=== PATIENT | male | born 1950 | race Caucasian/White ===

== ENCOUNTER 2017-08-06 15:38 | Emergency (ER) | payer OTHER, MEDICARE ==
[2017-08-06] MEDS ORDERED: ONDANSETRON 4 MG/2 ML VIAL ONE (16:33)
[2017-08-06] MEDS ORDERED: NA CHLORIDE 0.9% 2,000 ML ONE (16:33)
[2017-08-06] MEDS ORDERED: FAMOTIDINE 20 MG/2 ML VIAL IV ONE (16:33)
--- NOTE | 2017-08-06 16:38 | EDPHYS ---
Physician Documentation [facility] Name: Ramos Nair Age: 67 yrs Sex: Male : 1950 Arrival Date: 08/06/2017 Time: 15:44 Bed 25 Private MD: Mars Rodríguez B ED Physician Rodrigo Peñaloza HPI: 08/06 16:25 This 67 yrs old Male presents to ER via Ambulatory with complaints of sam Abdominal Pain, Back Pain. 16:25 The patient presents with pain that is acute, with no known mechanism of injury. The sam symptoms are located in the low back. Onset: The symptoms/episode began/occurred 3 week(s) ago. The pain does not radiate. Associated signs and symptoms: Pertinent positives: abdominal pain, nausea, weakness. The problem was sustained without known cause. Modifying factors: The patient symptoms are alleviated by nothing, the patient symptoms are aggravated by movement, walking. Severity of symptoms: At their worst the symptoms were moderate, in the emergency department the symptoms are unchanged. The patient has not experienced similar symptoms in the past. Historical: - Allergies: 15:50 No Known Allergies; hj - Home Meds: 15:50 Metoprolol Tartrate Oral [Active]; Nifedipine Oral [Active]; Lisinopril Oral [Active]; hj multivitamin oral oral [Active]; Vitamin D3 oral oral [Active]; Caltrate 600+D Plus Minerals oral oral [Active]; - PMHx: 15:50 Hypertension; hj - PSHx: 15:50 neck; hj - Immunization history:: Adult Immunizations up to date. - Social history:: Smoking status: Patient uses tobacco products, Patient/guardian denies using alcohol. - Ebola Screening: : Patient negative for fever greater than or equal to 101.5 degrees Fahrenheit, and additional compatible Ebola Virus Disease symptoms Patient denies exposure to infectious person Patient denies travel to an Ebola-affected area in the 21 days before illness onset. - Family history:: not pertinent. ROS: 16:25 Constitutional: Negative for fever, chills, and weight loss, Eyes: Negative for injury, sam pain, redness, and discharge, ENT: Negative for injury, pain, and discharge, Neck: Negative for injury, pain, and swelling, Cardiovascular: Negative for chest pain, palpitations, and edema, Respiratory: Negative for shortness of breath, cough, wheezing, and pleuritic chest pain, Back: Negative for injury and pain, : Negative for injury, bleeding, discharge, and swelling, MS/Extremity: Negative for injury and deformity, Skin: Negative for injury, rash, and discoloration, Neuro: Negative for headache, weakness, numbness, tingling, and seizure, Psych: Negative for depression, anxiety, suicide ideation, homicidal ideation, and hallucinations, Allergy/Immunology: Negative for hives, rash, and allergies, Endocrine: Negative for neck swelling, polydipsia, polyuria, polyphagia, and marked weight changes, Hematologic/Lymphatic: Negative for swollen nodes, abnormal bleeding, and unusual bruising. 16:25 Abdomen/GI: Positive for abdominal pain, nausea and vomiting, abdominal cramps. Exam: 16:25 Constitutional: This is a well developed, well nourished patient who is awake, alert, sam and in no acute distress. Head/Face: Normocephalic, atraumatic. Eyes: Pupils equal round and reactive to light, extra-ocular motions intact. Lids and lashes normal. Conjunctiva and sclera are non-icteric and not injected. Cornea within normal limits. Periorbital areas with no swelling, redness, or edema. ENT: Nares patent. No nasal discharge, no septal abnormalities noted. Tympanic membranes are normal and external auditory canals are clear. Oropharynx with no redness, swelling, or masses, exudates, or evidence of obstruction, uvula midline. Mucous membranes moist. Neck: Trachea midline, no thyromegaly or masses palpated, and no cervical lymphadenopathy. Supple, full range of motion without nuchal rigidity, or vertebral point tenderness. No Meningismus. Chest/axilla: Normal chest wall appearance and motion. Nontender with no deformity. No lesions are appreciated. Cardiovascular: Regular rate and rhythm with a normal S1 and S2. No gallops, murmurs, or rubs. Normal PMI, no JVD. No pulse deficits. Respiratory: Lungs have equal breath sounds bilaterally, clear to auscultation and percussion. No rales, rhonchi or wheezes noted. No increased work of breathing, no retractions or nasal flaring. Back: No spinal tenderness. No costovertebral tenderness. Full range of motion. Male : Normal genitalia with no discharge or lesions. Skin: Warm, dry with normal turgor. Normal color with no rashes, no lesions, and no evidence of cellulitis. MS/ Extremity: Pulses equal, no cyanosis. Neurovascular intact. Full, normal range of motion. Neuro: Awake and alert, GCS 15, oriented to person, place, time, and situation. Cranial nerves II-XII grossly intact. Motor strength 5/5 in all extremities. Sensory grossly intact. Cerebellar exam normal. Normal gait. Psych: Awake, alert, with orientation to person, place and time. Behavior, mood, and affect are within normal limits. 16:25 Abdomen/GI: Inspection: abdomen appears normal, Bowel sounds: normal, Palpation: mild abdominal tenderness, in all quadrants, moderate abdominal tenderness, in all quadrants. Vital Signs: 15:51 BP 99 / 78; Pulse 90; Resp 18; Temp 98.1(O); Pulse Ox 96% on R/A; Weight 57.15 kg; Height 5 ft. 9 in. (175.26 cm); Pain 6/10; 16:14 BP 110 / 76; Pulse 83; Resp 18; Pulse Ox 97% on R/A; Pain 6/10; tl3 18:19 BP 98 / 66; Pulse 84; Resp 18; Pulse Ox 96% on R/A; aj1 19:25 BP 102 / 75; Pulse 88; Resp 18; Pulse Ox 96% on R/A; Pain 4/10; aj1 15:51 Body Mass Index 18.61 (57.15 kg, 175.26 cm) MDM: 15:55 Patient medically screened. [facility] 16:25 Data reviewed: vital signs, nurses notes, lab test result(s), EKG, radiologic studies, sam plain films. 08/06 16:24 Order name: Basic Metabolic Panel; Complete Time: 17:22 [facility] 08/06 16:24 Order name: BNP; Complete Time: 17:22 [facility] 08/06 16:24 Order name: CBC with Diff; Complete Time: 17:22 [facility] 08/06 16:24 Order name: Ckmb; Complete Time: 17:22 [facility] 08/06 16:24 Order name: CPK; Complete Time: 17:22 [facility] 08/06 16:24 Order name: LFT's; Complete Time: 17:22 [facility] 08/06 16:24 Order name: Magnesium; Complete Time: 17:22 [facility] 08/06 16:24 Order name: PT-INR; Complete Time: 17:22 [facility] 08/06 16:24 Order name: Ptt, Activated; Complete Time: 17:22 [facility] 08/06 16:24 Order name: Troponin (emerg Dept Use Only); Complete Time: 17:22 [facility] 08/06 16:24 Order name: Lipase; Complete Time: 17:22 [facility] 08/06 16:24 Order name: Type And Screen; Complete Time: 18:41 [facility] 08/06 17:23 Order name: Urine Osmolality [facility] 08/06 17:23 Order name: Urine Sodium Random [facility] 08/06 16:24 Order name: EKG; Complete Time: 16:25 [facility] 08/06 16:24 Order name: Cardiac monitoring; Complete Time: 16:47 [facility] 08/06 16:32 Order name: Abdomen Acute Series XRAY; Complete Time: 17:22 [facility] 08/06 16:44 Order name: CONS Physician Consult [facility] 08/06 17:23 Order name: Osmolality, Serum [facility] 08/06 17:41 Order name: ABO/RH no charge; Complete Time: 18:41 [facility] 08/06 17:48 Order name: Chem 7 [facility] 08/06 18:33 Order name: Basic Metabolic Panel; Complete Time: 18:41 [facility] 08/06 18:39 Order name: Osmolality, Serum; Complete Time: 18:41 [facility] 08/06 19:19 Order name: Urine Dipstick--Ancillary (enter results) [facility] 08/06 19:28 Order name: UR SODIUM; Complete Time: 19:28 [facility] 08/06 16:24 Order name: EKG - Nurse/Tech; Complete Time: 16:47 [facility] 08/06 16:24 Order name: IV Saline Lock; Complete Time: 16:27 [facility] 08/06 16:24 Order name: Labs collected and sent; Complete Time: 16:27 [facility] 08/06 16:24 Order name: O2 Per Protocol; Complete Time: 16:48 [facility] 08/06 16:24 Order name: O2 Sat Monitoring; Complete Time: 16:48 [facility] 08/06 16:24 Order name: Urine Dipstick-Ancillary (obtain specimen); Complete Time: 19:20 [facility] 08/06 17:23 Order name: Seizure Precautions; Complete Time: 17:47 [facility] Administered Medications: 16:46 Drug: Pepcid 20 mg Route: IVP; Site: right antecubital; aj1 19:27 Follow up: Response: No adverse reaction aj1 16:46 Drug: Zofran 4 mg Route: IVP; Site: right antecubital; aj1 19:27 Follow up: Response: No adverse reaction aj 16:47 Drug: NS 0.9% 1000 ml Route: IV; Rate: 1 bolus; Site: right antecubital; aj1 19:26 Follow up: IV Status: Completed infusion; IV Intake: 1000ml aj 16:47 Drug: NS 0.9% 1000 ml Route: IV; Rate: 125 ml/hr; Site: right antecubital; aj1 19:27 Follow up: IV Status: Infusion continued upon transfer; IV Intake: 350ml aj Disposition: 08/06/17 17:[address] [facility]. Diagnosis are Abdominal tenderness - cecal mass, metastaic, Vomiting, Hypo-osmolality and hyponatremia, Dehydration, Hypotension. - Reason for transfer: Higher level of care. - Accepting physician is to [facility]. - Condition is Fair. - Problem is new. - Symptoms have improved. Signatures: Dispatcher [employer] EDKY Vidal Francis rg2 Kalee Poon RN RN aj1 Rodrigo Peñaloza MD MD cha Joaquin, Henry RN RN hj Corrections: (The following items were deleted from the chart) 16:34 16:25 Chest Single View+RAD.RAD.BRZ ordered. [facility] ED[facility] 17:23 16:37 Hospitalization Ordered by Jillian Carrera MD for Inpatient Admission. Preliminary sam diagnosis is Abdominal tenderness - cecal mass, metastatic; Anorexia; Vomiting. Bed requested for Telemetry/MedSurg (Inpatient). Status is Inpatient Admission. Condition is Stable. Problem is new. Symptoms have improved. UTI on Admission? No. sam 17:46 17:27 08/06/2017 17:[address] [facility]. Diagnosis is sam Abdominal tenderness - cecal mass, metastaic; Vomiting; Hypo-osmolality and hyponatremia. Reason for transfer: Higher level of care. Accepting physician is to [facility]. Condition is Fair. Problem is new. Symptoms have improved. sam 18:48 17:46 08/06/2017 17:[address] [facility]. Diagnosis is sam Abdominal tenderness - cecal mass, metastaic; Vomiting; Hypo-osmolality and hyponatremia; Dehydration. Reason for transfer: Higher level of care. Accepting physician is to [facility]. Condition is Fair. Problem is new. Symptoms have improved. sam 19:30 18:48 08/06/2017 17:[address] [facility]. Diagnosis is rg2 Abdominal tenderness - cecal mass, metastaic; Vomiting; Hypo-osmolality and hyponatremia; Dehydration; Hypotension. Reason for transfer: Higher level of care. Accepting physician is to [facility]. Condition is Fair. Problem is new. Symptoms have improved. sam
[2017-08-06 16:54] LABS: Absolute Lymphocytes (CBC) 1.8 K/uL (0.7-4.9); Absolute Monocytes 1.3 K/uL (0.1-1.3); Absolute Neutrophil 8.6 K/uL (1.8-8.0); Basophils % 1.2 % (0-1.3); Eosinophils % 1.4 % (0-4.4); Hematocrit 35.6 % (39.6-49.0); Lymphocytes % 15.1 % (15.3-44.8); MCV 90.2 fL (80-100); MPV 7.8 fL (7.6-11.3); Monocytes % 10.4 % (3.3-12.3); RBC Red Blood Cell Count 3.94 M/uL (4.33-5.43)
[2017-08-06 17:04] LABS: Bicarbonate 23 mEq/L (21-31); Glucose Level 105 mg/dL (65-120); Lipase 33 U/L (22-51); Potassium 4.2 mEq/L (3.6-5.0); Sodium Level 122 mEq/L (135-145)
[2017-08-06 17:06] LABS: Protime INR 1.07
--- NOTE | 2017-08-06 17:07 | RAD REPORT ---
EXAM DESCRIPTION: RAD - Abdomen Acute Series - 08/06/2017 4:53 pm CLINICAL HISTORY: Abdominal pain, weight loss COMPARISON: CT study July 20 FINDINGS: Lungs are fibrotic as a baseline. Right suprahilar mass present approximately 3 cm in size . There is fullness of the right hilum that is probably lymphadenopathy. No peripheral pneumonia. Hea rt size and pulmonary vasculature are normal. No pleural effusion, pneumothorax or other acute cardio pulmonary process seen. Bowel gas pattern is nonspecific. No bowel obstruction, free air or other acute findings. No suspicio us calcifications. No other suspicious for significant findings. Findings telephoned to Dr Cartwright in the emergency department 1702 hours. IMPRESSION: Right suprahilar mass and right hilar lymphadenopathy. This could be primary lung malign tila or metastatic disease. Follow-up CT imaging in the chest could be obtained as warranted.
[2017-08-06 17:11] LABS: ALT/SGPT 17 IU/L (10-60); AST/SGOT 52 IU/L (10-42); Albumin 3.5 g/dL (3.2-5.5); Alkaline Phosphatase 87 IU/L (42-121); BUN Blood Urea Nitrogen 10 mg/dL (6-20); Bilirubin Direct 0.1 mg/dL (0-0.2); Bilirubin Total 0.7 mg/dL (0.3-1.2); Creatine Phosphokinase 19 IU/L (22-269); Magnesium 1.8 mg/dL (1.8-2.5); Protein, Total 7.9 g/dL (6.0-8.3)
[2017-08-06 17:13] LABS: CKMB Creatine Kinase MB 1.3 ng/ml (0.3-4.0)
--- NOTE | 2017-08-06 17:28 | ER ---
Nurse's Notes [facility] Name: Ramos Nair Age: 67 yrs Sex: Male : 1950 Arrival Date: 08/06/2017 Time: 15:44 Bed 25 Private MD: Mars Rodríguez B Diagnosis: Abdominal tenderness-cecal mass, metastaic;Vomiting;Hypo-osmolality and hyponatremia;Dehydration;Hypotension Presentation: 08/06 15:45 Presenting complaint: Patient states: hanane been seeing Dr. Royal and been waiting for results of upper GI and CT abd, i couldn't bear the pain on my abd right now, both R and L upper outer part; denies diarrhea, reports vomiting; lost 20 lbs for this month; denies fever and chills;. Transition of care: patient was not received from another setting of care. Onset of symptoms was August 06, 2017. Risk Assessment: Do you want to hurt yourself or someone else? Patient reports no desire to harm self or others. Initial Sepsis Screen: Does the patient meet any 2 criteria? No. Patient's initial sepsis screen is negative. Does the patient have a suspected source of infection? No. Patient's initial sepsis screen is negative. Care prior to arrival: None. 15:45 Method Of Arrival: Ambulatory 15:45 Acuity: GEOVANI 3 Triage Assessment: 15:51 General: Appears in no apparent distress. uncomfortable, slender, Behavior is calm, hj cooperative, appropriate for age. Pain: Complains of pain in abdomen Pain currently is 6 out of 10 on a pain scale. Historical: - Allergies: 15:50 No Known Allergies; hj - Home Meds: 15:50 Metoprolol Tartrate Oral [Active]; Nifedipine Oral [Active]; Lisinopril Oral [Active]; hj multivitamin oral oral [Active]; Vitamin D3 oral oral [Active]; Caltrate 600+D Plus Minerals oral oral [Active]; - PMHx: 15:50 Hypertension; hj - PSHx: 15:50 neck; hj - Immunization history:: Adult Immunizations up to date. - Social history:: Smoking status: Patient uses tobacco products, Patient/guardian denies using alcohol. - Ebola Screening: : Patient negative for fever greater than or equal to 101.5 degrees Fahrenheit, and additional compatible Ebola Virus Disease symptoms Patient denies exposure to infectious person Patient denies travel to an Ebola-affected area in the 21 days before illness onset. - Family history:: not pertinent. Screenin:50 Abuse screen: Denies threats or abuse. Denies injuries from another. Nutritional hj screening: No deficits noted. Tuberculosis screening: No symptoms or risk factors identified. Fall Risk None identified. Assessment: 15:50 GI: Bowel sounds present X 4 quads. Abdomen is tender to palpation. hj 16:14 General: Appears uncomfortable, well groomed, well developed, well nourished, Behavior tl3 is calm, cooperative, appropriate for age. Pain: Complains of pain in abdomen. Neuro: Level of Consciousness is awake, alert, obeys commands, Oriented to person, place, time, situation, Appropriate for age. Cardiovascular: Heart tones S1 S2 present Patient's skin is warm and dry. Respiratory: Airway is patent Respiratory effort is even, unlabored, Respiratory pattern is regular, symmetrical, Breath sounds are clear bilaterally. : No signs and/or symptoms were reported regarding the genitourinary system. EENT: No signs and/or symptoms were reported regarding the EENT system. Derm: No signs and/or symptoms reported regarding the dermatologic system. Musculoskeletal: No signs and/or symptoms reported regarding the musculoskeletal system. 16:45 Reassessment: Patient transported to radiology via wheelchair. aj1 17:15 Reassessment: Patient appears in no apparent distress at this time. No changes from aj1 previously documented assessment. Patient and/or family updated on plan of care and expected duration. Pain level reassessed. Patient is alert, oriented x 3, equal unlabored respirations, skin warm/dry/pink. 18:19 Reassessment: Patient appears in no apparent distress at this time. No changes from aj1 previously documented assessment. Patient and/or family updated on plan of care and expected duration. Pain level reassessed. Patient is alert, oriented x 3, equal unlabored respirations, skin warm/dry/pink. 18:55 Reassessment: Reports given to Hussein Choi RN at [facility]. aj1 19:15 Reassessment: Patient and/or family updated on plan of care and expected duration. Pain aj1 level reassessed. General: Appears in no apparent distress. comfortable, Behavior is calm, cooperative, appropriate for age. Neuro: Level of Consciousness is awake, alert, obeys commands, Oriented to person, place, time, situation. Cardiovascular: Patient's skin is warm and dry. Respiratory: Airway is patent Respiratory effort is even, unlabored, Respiratory pattern is regular, symmetrical. GI: Bowel sounds present X 4 quads. : No signs and/or symptoms were reported regarding the genitourinary system. EENT: No signs and/or symptoms were reported regarding the EENT system. Derm: No signs and/or symptoms reported regarding the dermatologic system. Skin is pink, warm \T\ dry. Musculoskeletal: No signs and/or symptoms reported regarding the musculoskeletal system. Circulation, motion, and sensation intact. Vital Signs: 15:51 BP 99 / 78; Pulse 90; Resp 18; Temp 98.1(O); Pulse Ox 96% on R/A; Weight 57.15 kg; hj Height 5 ft. 9 in. (175.26 cm); Pain 6/10; 16:14 BP 110 / 76; Pulse 83; Resp 18; Pulse Ox 97% on R/A; Pain 6/10; tl3 18:19 BP 98 / 66; Pulse 84; Resp 18; Pulse Ox 96% on R/A; aj1 19:25 BP 102 / 75; Pulse 88; Resp 18; Pulse Ox 96% on R/A; Pain 4/10; aj1 15:51 Body Mass Index 18.61 (57.15 kg, 175.26 cm) ED Course: 15:44 Patient arrived in ED. mr 15:44 Mars Rodríguez MD is Private Physician. mr 15:48 Triage completed. hj 15:50 Arm band placed on left wrist. hj 15:55 Rodrigo Peñaloza MD is Attending Physician. [facility] 16:14 ED physician to see patient. tl3 16:14 Patient has correct armband on for positive identification. Placed in gown. Bed in low tl3 position. Call light in reach. Side rails up X2. Pulse ox on. NIBP on. 16:14 Inserted saline lock: 20 gauge in right antecubital area, using aseptic technique. tl3 Blood collected. 16:18 Kalee Poon RN is Primary Nurse. aj1 16:34 EKG done, by non morse intercept technician. reviewed by Rodrigo Peñaloza MD. at1 16:36 Jillian Carrera MD is Hospitalizing Provider. sam 16:48 Patient moved to radiology via wheelchair. bb2 16:50 X-ray completed. Patient tolerated procedure well. Patient moved back from radiology. bb2 16:51 Abdomen Acute Series XRAY In Process Unspecified. EDMS 19:25 No provider procedures requiring assistance completed. Patient transferred, IV remains aj1 in place. Administered Medications: 16:46 Drug: Pepcid 20 mg Route: IVP; Site: right antecubital; aj1 19:27 Follow up: Response: No adverse reaction aj1 16:46 Drug: Zofran 4 mg Route: IVP; Site: right antecubital; aj1 19:27 Follow up: Response: No adverse reaction aj1 16:47 Drug: NS 0.9% 1000 ml Route: IV; Rate: 1 bolus; Site: right antecubital; aj1 19:26 Follow up: IV Status: Completed infusion; IV Intake: 1000ml aj1 16:47 Drug: NS 0.9% 1000 ml Route: IV; Rate: 125 ml/hr; Site: right antecubital; aj1 19:27 Follow up: IV Status: Infusion continued upon transfer; IV Intake: 350ml aj1 Intake: 19:26 IV: 1000ml; Total: 1000ml. aj1 19:27 IV: 350ml; Total: 1350ml. aj1 Outcome: 16:37 Decision to Hospitalize by Provider. sam 17:27 ER care complete, transfer ordered by . sam 19:25 Transferred by ground EMS to [facility]. aj1 19:25 Condition: stable 19:25 Discharge instructions given to patient, Instructed on the need for transfer, Demonstrated understanding of instructions. 19:30 Patient left the ED. rg2 Signatures: Dispatcher [employer] EDMS Vidal Francis rg2 Kalee Poon RN RN aj1 Rodrigo Peñaloza MD MD cha Rivera, Maria mr navaLaurel, engine manager EKG Tat1 Alex Cooley, Lainey Ng RN bb2 Yarelis Ortiz RN RN tl3 Corrections: (The following items were deleted from the chart) 15:53 15:51 Pulse 90bpm; Resp 18bpm; Pulse Ox 96% RA; Temp 98.1F Oral; 57.15 kg; Height 5 ft. hj 9 in.; BMI: 18.6; Pain 6/10; hj
[2017-08-06 18:33] LABS: Bicarbonate 21 mEq/L (21-31); Glucose Level 106 mg/dL (65-120); Potassium 4.4 mEq/L (3.6-5.0); Sodium Level 123 mEq/L (135-145)
[2017-08-06 18:34] LABS: BUN Blood Urea Nitrogen 9 mg/dL (6-20)
[2017-08-06 19:56] LABS: Urine Blood NEGATIVE (NEG); Urine Glucose NEGATIVE (NEG); Urine Protein NEGATIVE (NEG); Urine Specific Gravity 1.015 (1.005-1.030)
--- NOTE | 2017-08-06 20:36 | EKG ---
Test Date: 2017-08-06 Test Time: 16:31:33 [employer] Analyst: JORGE MEASUREMENT RESULTS: Intervals: Rate: 82 KS: 132 QRSD: 92 QT: 392 QTc: 457 [place]: P: 84 KS: 132 QRS: 58 T: 80 INTERPRETIVE STATEMENTS: Normal sinus rhythm Normal ECG No previous ECG available for comparison Electronically Signed On 08-06-17 20:35:14 CDT by Lauri Macedo
== END 2017-08-06 19:30 | disposition short-term general hospital (02) ==
LOC: ER 15:38 → ERHOLD 16:40 → UNDOADMIN 16:40
DX: E86.0 Dehydration (principal); K63.89 Other specified diseases of intestine; R11.10 Vomiting, unspecified; I95.9 Hypotension, unspecified; E87.1 Hypo-osmolality and hyponatremia; I10 Essential (primary) hypertension; Z72.0 Tobacco use
CPT/HCPCS: 36415; 74022; 80048 ×2; 80076; 81003; 82550; 82553; 83690; 83735; 83880; 83930; 83935; 84300; 84484; 85025; 85610; 85730; 86850; 86900; 86901; 93005; 96361; 96374; 96375; 99285; J2405; J7030

== ENCOUNTER 2017-09-03 11:40 | Emergency (ER) | payer OTHER, MEDICARE ==
--- OUTSIDE RECORDS SUMMARY | 2017-09-03 11:42 | XMS REPORT | Clinical Summary ---
:1950 Author Organization [facility] Address [address] [place] [address] Phone Care Team Providers Name Role Phone Unavailable Primary Care Provider Unavailable Allergies No Known Allergies Current Medications Prescription Sig. Disp. Refills Start Date End Date Status omeprazole Take 20 mg by Active (PRILOSEC) 20 MG mouth daily. capsule gabapentin Take 100 mg Active (NEURONTIN) 100 MG by mouth 2 capsule (two) times daily. cholecalciferol, Take 1,000 Active vitamin D3, 1,000 Units by unit capsule mouth every 7 days. calcium carbonate Take 600 mg Active (OS-FUAD) 600 mg by mouth calcium (1,500 mg) daily. Tab HYDROcodone-acetami Take 1 tablet 45 tablet 0 08/14/2017 Active nophen (NORCO by mouth 7.5-325) 7.5-325 mg every 4 per tablet (four) hours as needed for Pain. Max Daily Amount: 6 tablets sodium chloride 1 Take 2 180 tablet 0 08/14/2017 08/14/2018 Active gram tablet tablets (2 g total) by mouth 3 (three) times daily. alendronate Take 1 tablet 0 08/14/2017 08/14/2018 Active (FOSAMAX) 70 MG (70 mg total) tablet by mouth every 7 days. metoprolol Take 1 tablet 0 08/14/2017 Active (TOPROL-XL) 25 MG (25 mg total) 24 hr tablet by mouth 2 (two) times daily. lisinopril Take 20 mg by 08/14/2017 Discontinued (PRINIVIL,ZESTRIL) mouth daily. 20 MG tablet NIFEdipine Take 60 mg by 08/14/2017 Discontinued (PROCARDIA-XL) 60 mouth daily. MG (OSM) 24 hr tablet metoprolol Take 25 mg by 08/14/2017 Discontinued (TOPROL-XL) 25 MG mouth daily. 24 hr tablet Active Problems Problem Noted Date Metastatic cancer (HCC) 08/13/2017 SIADH (syndrome of inappropriate ADH production) (HCC) 08/13/2017 Hyponatremia 08/06/2017 Encounters Date Type Specialty Care Team Description 08/10/2017 Procedure Pass Gastroenterology 08/09/2017 Anesthesia Event Gastroenterology Keren Hager MD 08/08/2017 Anesthesia Event Gastroenterology Bronson Russell MD 08/08/2017 Procedure Pass Gastroenterology 08/08/2017 Surgery Gastroenterology Anna Ramos COLONOSCOPY,BIOPSY MD Alley 08/06/2017 - Hospital Encounter Cardiology Lisa, Hyponatremia;Generali 08/14/2017 MD Triston zed abdominal Tirukkovalluri, mass;Cecum MD Nunu mass;Adrenal mass Jrani, (HCC);Weight MD Sidra loss;Current smoker;Abnormal CT scan, chest;Hilar mass;Metastatic cancer (HCC);SIADH (syndrome of inappropriate ADH production) (HCC);Malignant neoplasm of lung, unspecified laterality, unspecified part of lung (HCC) after 09/02/2016 Family History Medical History Relation Name Comments Cancer Father Hypertension Father Stroke Father Relation Name Status Comments Father Social History Tobacco Use Types Packs/Day Years Used Date Current Every Day Smoker 0.5 Smokeless Tobacco: Current User Tobacco Cessation: Ready to Quit: Yes Alcohol Use Drinks/Week oz/Week Comments No Sex Assigned at Date Recorded Not on file Last Filed Vital Signs Vital Sign Reading Time Taken Blood Pressure 137/83 08/14/2017 3:08 PM CDT Pulse 83 08/14/2017 3:08 PM CDT Temperature 36.4 C (97.5 F) 08/14/2017 3:08 PM CDT Respiratory Rate 18 08/14/2017 3:08 PM CDT Oxygen Saturation 95% 08/14/2017 3:08 PM CDT Inhaled Oxygen Concentration - - Weight 51.8 kg (114 lb 3.2 oz) 08/14/2017 7:14 AM CDT Height 175.3 cm (5' 9") 08/06/2017 8:59 PM CDT Body Mass Index 16.86 08/14/2017 7:14 AM CDT Plan of Treatment Not on file Procedures Procedure Name Priority Date/Time Associated Diagnosis Comments COLONOSCOPY,BIOPSY 08/08/2017 12:00 PM CDT Mass of colon Special Needs COLON WITH ANES after 09/02/2016 Results RHYTHM STRIP - SCAN (08/16/2017 10:51 AM)CBC with platelet count + automated diff (08/14/2017 3:54 AM)Only the most recent of5 resultswithin the time period is included. Component Value Ref Range WBC 10.0 3.5 - 10.5 K/L RBC 3.07 (L) 4.63 - 6.08 M/L Hemoglobin 9.0 (L) 13.7 - 17.5 GM/DL Hematocrit 27.9 (L) 40.1 - 51.0 % MCV 90.9 79.0 - 92.2 fL MCH 29.3 25.7 - 32.2 pg MCHC 32.3 32.3 - 36.5 GM/DL RDW 15.1 (H) 11.6 - 14.4 % Platelets 252 150 - 450 K/CU MM MPV 9.6 9.4 - 12.4 fL nRBC 0 0 - 0 /100 WBC % Neutros 64 % % Lymphs 18 % % Monos 15 % % Eos 2 % % Baso 1 % # Neutros 6.37 (H) 1.78 - 5.38 K/L # Lymphs 1.75 1.32 - 3.57 K/L # Monos 1.48 (H) 0.30 - 0.82 K/L # Eos 0.23 0.04 - 0.54 K/L # Baso 0.06 0.01 - 0.08 K/L Immature Granulocytes-Relative 1 0 - 1 % Specimen Performing Laboratory Blood - Arm, Right [facility] [address] [address] CBC with platelet count + automated diff (08/14/2017 3:54 AM)Only the most recent of5 resultswithin the time period is included. Specimen Performing Laboratory Blood Narrative The following orders were created for panel order CBC with platelet count + automated diff. Procedure Abnormality Status --------- ------ CBC with platelet count ...[[id number]]AbnormalFinal result Please view results for these tests on the individual orders. Magnesium (08/14/2017 3:54 AM)Only the most recent of8 resultswithin the time period is included. Component Value Ref Range Magnesium 1.7 1.6 - 2.6 mg/dL Specimen Performing Laboratory Blood - Arm, [address] [address] Basic Metabolic Panel (08/14/2017 3:54 AM)Only the most recent of8 resultswithin the time period is included. Component Value Ref Range Sodium 126 (L) 136 - 145 meq/L Potassium 4.0 3.5 - 5.1 meq/L Chloride 97 (L) 98 - 107 meq/L CO2 22 22 - 29 meq/L BUN 4 (L) 7 - 21 mg/dL Creatinine 0.50 (L) 0.57 - 1.25 mg/dL Glucose 106 (H) 70 - 105 mg/dL Calcium 8.7 8.4 - 10.2 mg/dL EGFR 166Comment: ESTIMATED GFR IS NOT ACCURATE mL/min/1.73 sq m CREATININE CLEARANCE IN PREDICTING GLOMERULAR FILTRATION RATE. ESTIMATED GFR IS NOT APPLICABLE FOR DIALYSIS PATIENTS. Specimen Performing Laboratory Blood - Arm, [address] [address] TSH/Free T4 If Indicated (08/13/2017 9:18 AM)Only the most recent of2 resultswithin the time period is included. Component Value Ref Range TSH 1.70 0.35 - 4.94 uIU/mL Specimen Performing Laboratory Blood - Arm, [address] [address] Prolactin (08/13/2017 9:18 AM) Component Value Ref Range Prolactin 10.83 3.46 - 19.40 ng/mL Specimen Performing Laboratory Blood - Arm, [address] [address] T4, free (08/13/2017 9:18 AM) Component Value Ref Range Free T4 1.33 0.70 - 1.48 ng/dL Specimen Performing Laboratory Blood - Arm, [address] [address] Tissue Exam (08/13/2017 8:37 AM)Only the most recent of2 resultswithin the time period is included. Component Value Ref Range Case Report Surgical Pathology Report Case: [id number] Authorizing Provider:Chaim,Collected: 08/13/2017 0837 MD Nunu Ordering Location: [address] Received: 08/13/2017 0838 Service Pathologist: Shane Gudino MD Specimen:Abdominal ADDENDUM This addendum is being issued to report the results of biomarker testing performed at [facility]. RESULT: - EGFR mutation: NOT DETECTED - BRAF mutation: NOT DETECTED - FISH analysis for ALK gene rearrangement is NEGATIVE - FISH analysis for ROS1 gene rearrangement is NEGATIVE - Immunostain for PDL-1 (28-8 clone) is NEGATIVE Please refer to attached scanned report for further results. CPT: 90412 DIAGNOSIS SUBXIPHOID NODULE, BIOPSY -ADENOCARCINOMA WITH MUCINOUS FEATURES (SEE COMMENT) Signing Pathologist Direct Phone Line: [phone] COMMENT Given the presence of lung mass, the tumor could represent adenocarcinoma of lung origin, however there is no definite immunophenotypic support for the same. Positive CDX2 staining, although non-specifi c raises the possibility of otherprimary sites such as pancreatico- biliary, upper gastrointestinal primary tumors, which needs to be clinically and radiologically excluded. Tissue is being sent to [facility] for molecular testing. Results will be reported in an addendum. CPT Code(s) 66061, 33065, 03336 x 10, 74655 CLINICAL HISTORY Subxyphoid nodule 2.7 x 2.3 x 2.5 cm SPECIMEN SOURCE subxiphoid nodule biopsy GROSS DESCRIPTION The specimen is received in a formalin-filled container and labeled with the patient's information and labeled "subxiphoid nodule biopsy" and consists of three off white core biopsies ranging in length from 0.8 to 1.6 cm. Submitted A1. CG/pl MICROSCOPIC DESCRIPTION The tumor displays glandular differentiation with prominent mucinous features infiltrating soft tissue. There is intracellular mucin as well as focal clear cell features. No definite squamous differentiation is seen. Immunostain results: CK7: Positive CDX-2: Positive CK20: Negative TTF-1: Negative Napsin-A: Negative CK5/6: Negative P63: Negative(slide for PSAP is used to restain for p63 to conserve tissue) GCDFP: Negative PSA: Negative PSAP:Negative Prostein: Negative Mucicarmine: Highlights intracellular mucin Specimen Performing Laboratory Tissue - Abdominal [facility] [id number] [place] [address] Sodium (08/11/2017 10:40 PM)Only the most recent of11 resultswithin the time period is included. Component Value Ref Range Sodium 124 (L) 136 - 145 meq/L Specimen Performing Laboratory Blood - Arm, Left [facility] [address] [address] Narrative Notify renal of sodium result if Na < 122 or > 128 MR brain without & with IV contrast (08/11/2017 10:00 PM) Specimen Performing Laboratory [facility] Narrative FINAL REPORT MRI Brain with and without contrast 08/11/2017 at 2158 CLINICAL HISTORY: Lung cancer, non-small cell, staging TECHNIQUE: Multiplanar, multisequence MR imaging of the brain was performed, utilizing the following imaging sequences: Axial T1, T2, FLAIR, GRE, DWI/ADC; sagittal T1; postcontrast axial, sagittal, and coronal T1. COMPARISON: None available. FINDINGS: There is a 5 mm noncystic lesion without diffusion restriction or remarkable enhancement at the base of the pituitary infundibulum, abutting the superior pituitary gland. Diagnostic considerations include pituitary adenoma, pituicytoma, granular cell tumor, lymphocytic hypophysitis, and metastasis. There is no acute infarct hematoma, hydrocephalus, extra-axial collection, or abnormal intracranial enhancement. There is mild chronic microvascular ischemia in the supratentorial white matter. There is generalized parenchymal volume loss. Normal appearing flow-voids are present within the major intracranial vascular structures. The pineal region, craniocervical junction, orbits, face, and skull base are unremarkable. IMPRESSION: 1. Indeterminate subcentimeter pituitary infundibular lesion, with diagnostic considerations as provided. 2. Mild chronic microvascular ischemia. Signed: Art Johnson MD Report Verified Date/Time:08/12/2017 08:17:56 Reading Location: [address] Neuro Reading Room Procedure Note Interface, External Ris In - 08/12/2017 8:20 AM CDT FINAL REPORT MRI Brain with and without contrast 08/11/2017 at 2158 CLINICAL HISTORY: Lung cancer, non-small cell, staging TECHNIQUE: Multiplanar, multisequence MR imaging of the brain was performed, utilizing the following imaging sequences: Axial T1, T2, FLAIR, GRE, DWI/ADC; sagittal T1; postcontrast axial, sagittal, and coronal T1. COMPARISON: None available. FINDINGS: There is a 5 mm noncystic lesion without diffusion restriction or remarkable enhancement at the base of the pituitary infundibulum, abutting the superior pituitary gland. Diagnostic considerations include pituitary adenoma, pituicytoma, granular cell tumor, lymphocytic hypophysitis, and metastasis. There is no acute infarct hematoma, hydrocephalus, extra-axial collection, or abnormal intracranial enhancement. There is mild chronic microvascular ischemia in the supratentorial white matter. There is generalized parenchymal volume loss. Normal appearing flow-voids are present within the major intracranial vascular structures. The pineal region, craniocervical junction, orbits, face, and skull base are unremarkable. IMPRESSION: 1. Indeterminate subcentimeter pituitary infundibular lesion, with diagnostic considerations as provided. 2. Mild chronic microvascular ischemia. Signed: Art Johnson MD Report Verified Date/Time: 08/12/2017 08:17:56 Reading Location: [address] Neuro Reading Room Core Biopsy (08/10/2017 3:54 PM) Specimen Performing Laboratory [employer] Narrative FINAL REPORT History: Subxiphoid nodule COMPARISON: CT dated 08/09/2017 DISCUSSION: The previous CT study was reviewed. A ship officer image was obtained. In the subxiphoid region, there is a hypoechoic mass measuring 2.7 x 2.3 x 2.5 cm. The procedure including the risks and complications of the procedure were explained to the patient. The patient consented. The subxiphoid region was prepped and draped in usual sterile fashion. 2% lidocaine was applied to the skin and deep soft tissues. Under ultrasound guidance and using sterile technique, a total of 3 core biopsy specimens were obtained from the subxiphoid mass. The specimens were placed in formalin and were sent to pathology for analysis. There were no immediate complications. IMPRESSION: Technically successful ultrasound-guided core biopsy of a subxiphoid mass. Signed: Brook Moseley MD Report Verified Date/Time:08/10/2017 16:06:40 Reading Location: [address] Ultrasound Reading Room Procedure Note Interface, External Ris In - 08/10/2017 4:08 PM CDT FINAL REPORT History: Subxiphoid nodule COMPARISON: CT dated 08/09/2017 DISCUSSION: The previous CT study was reviewed. A ship officer image was obtained. In the subxiphoid region, there is a hypoechoic mass measuring 2.7 x 2.3 x 2.5 cm. The procedure including the risks and complications of the procedure were explained to the patient. The patient consented. The subxiphoid region was prepped and draped in usual sterile fashion. 2% lidocaine was applied to the skin and deep soft tissues. Under ultrasound guidance and using sterile technique, a total of 3 core biopsy specimens were obtained from the subxiphoid mass. The specimens were placed in formalin and were sent to pathology for analysis. There were no immediate complications. IMPRESSION: Technically successful ultrasound-guided core biopsy of a subxiphoid mass. Signed: Brook Moseley MD Report Verified Date/Time: 08/10/2017 16:06:40 Reading Location: [address] Ultrasound Reading Room Sodium, random urine (08/10/2017 12:38 PM)Only the most recent of2 resultswithin the time period is included. Component Value Ref Range Sodium Urine 117 meq/L Specimen Performing Laboratory Urine [address] [address] Narrative Reference Range: No Normals Osmolality, urine (08/10/2017 12:19 PM)Only the most recent of2 resultswithin the time period is included. Component Value Ref Range Osmolality, Ur 337 40 - 1400 mOsm/kg Specimen Performing Laboratory Urine [address] [address] Platelet count (08/10/2017 11:47 AM) Component Value Ref Range Platelets 269 150 - 450 K/CU MM Specimen Performing Laboratory Blood - Arm, Right [address] [address] PT/aPTT (08/10/2017 4:29 AM) Component Value Ref Range Protime 15.0 (H) 11.7 - 14.7 seconds INR 1.2 <=5.9 PTT 30.0 22.5 - 36.0 seconds Specimen Performing Laboratory Blood - Arm, [address] [address] Narrative RECOMMENDED COUMADIN/WARFARIN INR THERAPY RANGES STANDARD DOSE: 2.0 - 3.0 Includes: PROPHYLAXIS for venous thrombosis, systemic embolization; TREATMENT for venous thrombosis and/or pulmonary embolus. HIGH RISK: Target INR is 2.5-3.5 for patients with mechanical heart valves. Calcium, Ionized (08/10/2017 4:29 AM)Only the most recent of2 resultswithin the time period is included. Component Value Ref Range Calcium, Ion 1.07 (L) 1.12 - 1.27 mmol/L pH, Blood 7.46 Specimen Performing Laboratory Blood - Arm, [address] [address] Prothrombin time/INR (08/10/2017 4:29 AM)Only the most recent of4 resultswithin the time period is included. Component Value Ref Range Protime 15.0 (H) 11.7 - 14.7 seconds INR 1.2 <=5.9 Specimen Performing Laboratory Blood - Arm, [address] [address] Narrative RECOMMENDED COUMADIN/WARFARIN INR THERAPY RANGES STANDARD DOSE: 2.0 - 3.0 Includes: PROPHYLAXIS for venous thrombosis, systemic embolization; TREATMENT for venous thrombosis and/or pulmonary embolus. HIGH RISK: Target INR is 2.5-3.5 for patients with mechanical heart valves. Phosphorus (08/10/2017 4:29 AM)Only the most recent of4 resultswithin the time period is included. Component Value Ref Range Phosphorus 3.3 2.3 - 4.7 mg/dL Specimen Performing Laboratory Blood - Arm, [address] [address] [address] chest without IV contrast (08/09/2017 7:50 PM) Specimen Performing Laboratory [employer] Narrative FINAL REPORT EXAMINATION: Noncontrast chest CT. CLINICAL HISTORY:Lung mass COMPARISON EXAM: None TECHNIQUE: Axial noncontrast tomographic images were acquired through the thorax. The exam was performed according to our departmental dose optimization program which includes automated exposure control, adjustment of the mA and/or kV according to patient's size and/or use of iterative reconstructive technique. FINDINGS: The lungs demonstrate architectural distortion compatible with moderate - advanced emphysema. A spiculated 4.5 cm mass is noted in the right upper lobe. The adjacent posterior right pleural margin is associated with nodular soft tissue attenuation which extends from the pleural margin to the mass lesion. Evaluation of the mediastinal structures is limited secondary to the absence of IV contrast. However, pathologically enlarged lymph nodes are suspected in the paratracheal and subcarinal spaces. There is also abnormal asymmetric right hilar soft tissue nodularity with associated luminal narrowing of the adjacent right mainstem bronchus concerning for adenopathy and/or primary tumor. Asymmetric nodular soft tissue fullness in the right lower neck may reflect adenopathy. Asymmetric dilatation of the right internal jugular vein and/or venous thrombosis cannot be excluded on today's noncontrast exam. The thoracic aorta is normal in caliber. Calcific atherosclerotic changes are noted involving the aorta, great vessels arising off of the aorta and the coronary arteries. The heart size is normal. No evidence of a significant pericardial effusion. There are small bilateral pleural effusions. Adjacent dependent lung consolidation is favored to reflect associated passive atelectasis. Limited images of the upper abdomen demonstrate large bilateral mass lesions centered in the region of the adrenal glands. The mass lesions are incompletely visualized. However, the right adrenal mass measures at least 9 cm and the left adrenal mass appears to measure at least 10 cm. Additional smaller nodular soft tissue densities are noted in the upper abdomen including a 2.4 cm nodule along the ventral aspect of the left lobe of the liver. Small hypodense lesions are also noted in the liver. Absence of IV contrast and small size limits further characterization. No definite evidence of a discrete bone lesion. However, bone scan would provide a more sensitive exam as osseous metastatic disease cannot be excluded. Bones demonstrate demineralization compatible with senescent osteopenia. IMPRESSION: Right upper lobe spiculated 4.5 cm lung mass with imaging characteristics concerning for a primary lung cancer. Soft tissue nodularity along the right pleural margin abutting the mass lesion detailed above concerning for possible local tumor extension. Mediastinal lymphadenopathy and right hilar soft tissue fullness. There is associated luminal narrowing of the right mainstem bronchus concerning for local mass effect and/or invasion. Multiple upper abdominal mass lesions concerning for a metastatic foci. Pulmonary emphysema. Small bilateral pleural effusions. Dependent atelectasis. Calcific atherosclerosis including coronary artery involvement. Signed: Viktor Navarro MD Report Verified Date/Time:08/09/2017 20:32:06 Reading Location: [address] Reading Room Procedure Note Interface, External Ris In - 08/09/2017 8:34 PM CDT FINAL REPORT EXAMINATION: Noncontrast chest CT. CLINICAL HISTORY:Lung mass COMPARISON EXAM: None TECHNIQUE: Axial noncontrast tomographic images were acquired through the thorax. The exam was performed according to our departmental dose optimization program which includes automated exposure control, adjustment of the mA and/or kV according to patient's size and/or use of iterative reconstructive technique. FINDINGS: The lungs demonstrate architectural distortion compatible with moderate - advanced emphysema. A spiculated 4.5 cm mass is noted in the right upper lobe. The adjacent posterior right pleural margin is associated with nodular soft tissue attenuation which extends from the pleural margin to the mass lesion. Evaluation of the mediastinal structures is limited secondary to the absence of IV contrast. However, pathologically enlarged lymph nodes are suspected in the paratracheal and subcarinal spaces. There is also abnormal asymmetric right hilar soft tissue nodularity with associated luminal narrowing of the adjacent right mainstem bronchus concerning for adenopathy and/or primary tumor. Asymmetric nodular soft tissue fullness in the right lower neck may reflect adenopathy. Asymmetric dilatation of the right internal jugular vein and/or venous thrombosis cannot be excluded on today's noncontrast exam. The thoracic aorta is normal in caliber. Calcific atherosclerotic changes are noted involving the aorta, great vessels arising off of the aorta and the coronary arteries. The heart size is normal. No evidence of a significant pericardial effusion. There are small bilateral pleural effusions. Adjacent dependent lung consolidation is favored to reflect associated passive atelectasis. Limited images of the upper abdomen demonstrate large bilateral mass lesions centered in the region of the adrenal glands. The mass lesions are incompletely visualized. However, the right adrenal mass measures at least 9 cm and the left adrenal mass appears to measure at least 10 cm. Additional smaller nodular soft tissue densities are noted in the upper abdomen including a 2.4 cm nodule along the ventral aspect of the left lobe of the liver. Small hypodense lesions are also noted in the liver. Absence of IV contrast and small size limits further characterization. No definite evidence of a discrete bone lesion. However, bone scan would provide a more sensitive exam as osseous metastatic disease cannot be excluded. Bones demonstrate demineralization compatible with senescent osteopenia. IMPRESSION: Right upper lobe spiculated 4.5 cm lung mass with imaging characteristics concerning for a primary lung cancer. Soft tissue nodularity along the right pleural margin abutting the mass lesion detailed above concerning for possible local tumor extension. Mediastinal lymphadenopathy and right hilar soft tissue fullness. There is associated luminal narrowing of the right mainstem bronchus concerning for local mass effect and/or invasion. Multiple upper abdominal mass lesions concerning for a metastatic foci. Pulmonary emphysema. Small bilateral pleural effusions. Dependent atelectasis. Calcific atherosclerosis including coronary artery involvement. Signed: Viktor Navarro MD Report Verified Date/Time: 08/09/2017 20:32:06 Reading Location: [address] Reading Room Cortisol (08/09/2017 11:58 AM)Only the most recent of2 resultswithin the time period is included. Component Value Ref Range Cortisol, Total 11.3 3.7 - 19.4 ug/dL Specimen Performing Laboratory Blood - Arm, Right [address] [address] Hepatic function panel (08/09/2017 6:10 AM)Only the most recent of3 resultswithin the time period is included. Component Value Ref Range Protein, Total 5.7 (L) 6.0 - 8.3 gm/dL Albumin 2.7 (L) 3.5 - 5.0 g/dL Total Bilirubin 0.8 0.2 - 1.2 mg/dL Bilirubin, Direct 0.4 0.1 - 0.5 mg/dL Alkaline Phosphatase 77 40 - 150 U/L AST 45 (H) 5 - 34 U/L ALT 12 6 - 55 U/L Specimen Performing Laboratory Blood [address] [address] REPORT OF PROCEDURE - ENDOSCOPY URL (08/08/2017 1:42 PM)Uric acid (08/08/2017 6:03 AM) Component Value Ref Range Uric Acid 3.3 2.6 - 7.2 mg/dL Specimen Performing Laboratory Blood - Arm, [address] [address] Comprehensive metabolic panel (08/08/2017 6:03 AM) Component Value Ref Range Protein, Total 6.1 6.0 - 8.3 gm/dL Albumin 2.9 (L) 3.5 - 5.0 g/dL Alkaline Phosphatase 79 40 - 150 U/L Total Bilirubin 0.8 0.2 - 1.2 mg/dL Sodium 124 (L) 136 - 145 meq/L Potassium 3.6 3.5 - 5.1 meq/L Chloride 96 (L) 98 - 107 meq/L CO2 20 (L) 22 - 29 meq/L BUN 6 (L) 7 - 21 mg/dL Creatinine 0.53 (L) 0.57 - 1.25 mg/dL Glucose 84 70 - 105 mg/dL Calcium 8.4 8.4 - 10.2 mg/dL AST 40 (H) 5 - 34 U/L ALT 13 6 - 55 U/L EGFR 156Comment: ESTIMATED GFR IS NOT ACCURATE mL/min/1.73 sq m CREATININE CLEARANCE IN PREDICTING GLOMERULAR FILTRATION RATE. ESTIMATED GFR IS NOT APPLICABLE FOR DIALYSIS PATIENTS. Specimen Performing Laboratory Blood - Arm, [address] [address] Urinalysis w/Microscopic (08/07/2017 11:29 PM) Component Value Ref Range Color, UA Yellow Clarity, UA Clear Specific Harmon, UA 1.009 1.001 - 1.035 pH, UA 6.5 5.0 - 8.0 Protein, UA Negative Negative Glucose, UA Negative Negative Ketones, UA 10 mg/dL (A) Negative Bilirubin, UA Negative Negative Blood, UA Negative Negative Nitrite, UA Negative Negative Leukocytes, UA Negative Negative Urobilinogen, UA 0.2 0.2 - 1.0 mg/dL RBC, UA <1 /HPF WBC, UA 1 /HPF Mucus Occasional Squam Epithel, UA <1 /HPF Specimen Source Urine, Clean Catch Specimen Performing Laboratory Urine - Urine, Clean Catch [address] [place] [address] Osmolality, serum (08/07/2017 7:51 PM) Component Value Ref Range Osmolality Serum 256 (L) 275 - 295 mOsm/kg Specimen Performing Laboratory Blood - Arm, [address] [address] Electrolytes (08/07/2017 7:51 PM) Component Value Ref Range Sodium 122 (L) 136 - 145 meq/L Potassium 3.8 3.5 - 5.1 meq/L Chloride 94 (L) 98 - 107 meq/L CO2 19 (L) 22 - 29 meq/L Specimen Performing Laboratory Blood - Arm, Left [address] [address] Narrative Call [phone] XR chest 2 views (08/07/2017 7:28 PM) Specimen Performing Laboratory GE RIS Narrative FINAL REPORT Comparison exam: None 4.1 x 2.9 cm suspected mass projecting superior and dorsal to the right hilum. Prominence of the right hilum and right paratracheal soft tissues concerning for lymphadenopathy. Contrast-enhanced CT scan of the chest is recommended to exclude neoplasm. Normal-sized heart. Old healed left clavicle fracture with residual deformity. Normal soft tissues. Signed: Elvis Sparrow MD Report Verified Date/Time:08/07/2017 22:50:09 Reading Location: [address] Ortho Consult Reading Room Procedure Note Interface, External Ris In - 08/07/2017 10:52 PM CDT FINAL REPORT Comparison exam: None 4.1 x 2.9 cm suspected mass projecting superior and dorsal to the right hilum. Prominence of the right hilum and right paratracheal soft tissues concerning for lymphadenopathy. Contrast-enhanced CT scan of the chest is recommended to exclude neoplasm. Normal-sized heart. Old healed left clavicle fracture with residual deformity. Normal soft tissues. Signed: Elvis Sparrow MD Report Verified Date/Time: 08/07/2017 22:50:09 Reading Location: [address] Ortho Consult Reading Room Vitamin B12 and Folate (08/07/2017 3:15 PM) Component Value Ref Range Vitamin B12 >2000 (H) 213 - 816 pg/mL Folate 12.3 >=7.0 ng/mL Specimen Performing Laboratory Blood - Arm, [address] [address] Iron, TIBC, % sat. (without ferritin) (08/07/2017 3:15 PM) Component Value Ref Range Iron 31 (L) 40 - 160 ug/dL TIBC 131 (L) 250 - 450 ug/dL Iron % Saturation 24 20 - 55 % Specimen Performing Laboratory Blood - Arm, [address] [address] Ferritin (08/07/2017 3:15 PM) Component Value Ref Range Ferritin 1059 (H) 5 - 275 ng/mL Specimen Performing Laboratory Blood - Arm, [address] [address] Carbohydrate antigen 19-9 (CA 19-9) (08/07/2017 5:08 AM) Component Value Ref Range CA 19-9 37 (H) <34 U/mL Comment: This test was performed using the Siemens ([employer]) Chemiluminescent method. Values obtained from different assay methods cannot be used interchangeably. CA19-9 levels, regardless of value, should not be interpreted as absolute evidence of the presence or absence of disease. Specimen Performing Laboratory Blood [facility] [address] [address] Narrative Performing Lab [facility] [address] [address] Mario De nAda MD, PhD, ROHAN Alpha fetoprotein (AFP), tumor marker (08/07/2017 5:08 AM) Component Value Ref Range Alpha-Fetoprotein 7.2 <10.0 ng/mL Specimen Performing Laboratory Blood [address] [address] Carcinoembryonic Antigen (CEA) (08/07/2017 5:08 AM) Component Value Ref Range CEA, SERUM 49.9 (H) 0.0 - 5.0 ng/mL Specimen Performing Laboratory Blood [facility] [address] after 09/02/2016
--- OUTSIDE RECORDS SUMMARY | 2017-09-03 11:43 | XMS REPORT ---
:1950 [facility] [address] [place] [address] [address] [place] [address] Care Team Providers Name Role Phone HUNTER OREILLY Unavailable Unavailable Problems This patient has no known problems. Allergies, Adverse Reactions, Alerts This patient has no known allergies or adverse reactions. Medications This patient has no known medications. Results Test Description Test Time Test Comments Text Results Atomic Results Result Comments TISSUE EXAM 2017-08-29 09:48:00 Surgical Pathology Report Case: [id number] Authorizing Provider: Chaim, Collected: 08/13/2017 0837 MD Nunu Ordering Location: [address] Received: 08/13/2017 0838 Service Pathologist: Shane Gudino MD Specimen: Abdominal This addendum is being issued to report the results of biomarker testing performed at [facility]. RESULT: - EGFR mutation: NOT DETECTED - BRAF mutation: NOT DETECTED - FISH analysis for ALK gene rearrangement is NEGATIVE- FISH analysis for ROS1 gene rearrangement is NEGATIVE- Immunostain for PDL-1 (28-8 clone) is NEGATIVEPlease refer to attached scanned report for further results. CPT: 82377Yhqrndds electronically signed by Shane Gudino MD on 08/29/2017 at 9:48 AMSUBXIPHOID NODULE, BIOPSY- ADENOCARCINOMA WITH MUCINOUS FEATURES (SEE COMMENT) Signing Pathologist Direct Phone Line: [phone] signed by Shane Gudino MD on 08/17/2017 at 2:57 PMPreliminary result electronically signed by Shane Gudino MD on 08/15/2017 at 7:12 PMPreliminary result electronically signed by Robert Hinojosa MD on 08/13/2017 at 4:28 PMGiven the presence of lung mass, the tumor could represent adenocarcinoma of lung origin, however there is no definite immunophenotypic support for the same. Positive CDX2 staining, although non-specific raises the possibility of other primary sites such as pancreatico-biliary, upper gastrointestinal primary tumors, which needs to be clinically and radiologically excluded. Tissue is being sent to [facility] for molecular testing. Results will be reported in an addendum.84135, 98174, 75218 x 10, 36230Izicbrdcej nodule 2.7 x 2.3 x 2.5 cmsubxiphoid nodule biopsy The specimen is received in a formalin-filled container and labeled with the patient's information and labeled "subxiphoid nodule biopsy" and consists of three off white core biopsies ranging in length from 0.8 to 1.6 cm. Submitted A1. CG/pl The tumor displays glandular differentiation with prominent mucinous features infiltrating soft tissue. There is intracellular mucin as well as focal clear cell features. No definite squamous differentiation is seen.Immunostain results:CK7: PositiveCDX-2: PbfqqmrqRM70: NegativeTTF-1: NegativeNapsin-A: NegativeCK5/6: LdexmkwrW74: Negative(slide for PSAP is used to restain for p63 to conserve tissue)GCDFP: NegativePSA: NegativePSAP: NegativeProstein: NegativeMucicarmine: Highlights intracellular mucin MAGNESIUM 2017-08-14 05:06:00 Test Item Value Reference Range Comments MAGNESIUM (BEAKER) (test fsri=591) 1.7 mg/dL 1.6-2.6 BASIC METABOLIC [id number] 05:06:00 Test Item Value Reference Range Comments SODIUM (BEAKER) (test 126 meq/L 136-145 pgtc=378) POTASSIUM (BEAKER) (test 4.0 meq/L 3.5-5.1 ovqz=927) CHLORIDE (BEAKER) (test 97 meq/L 98-107 cvsk=573) CO2 (BEAKER) (test 22 meq/L 22-29 zbfm=311) BLOOD UREA NITROGEN 4 mg/dL 7-21 (BEAKER) (test lccm=171) CREATININE (BEAKER) (test 0.50 mg/dL 0.57-1.25 vxns=172) GLUCOSE RANDOM (BEAKER) 106 mg/dL 70-105 (test efyt=250) CALCIUM (BEAKER) (test 8.7 mg/dL 8.4-10.2 lnwh=633) EGFR (BEAKER) (test 166 mL/min/1.73 sq m ESTIMATED GFR IS NOT uqla=3108) ACCURATE CREATININE CLEARANCE IN PREDICTING GLOMERULAR FILTRATION RATE. ESTIMATED GFR IS NOT APPLICABLE FOR DIALYSIS PATIENTS. CBC W/PLT COUNT & AUTO [id number] 04:49:00 Test Item Value Reference Range Comments WHITE BLOOD CELL COUNT (BEAKER) (test peiv=206) 10.0 K/ L 3.5-10.5 RED BLOOD CELL COUNT (BEAKER) (test zdji=876) 3.07 M/ L 4.63-6.08 HEMOGLOBIN (BEAKER) (test wfmi=325) 9.0 GM/DL 13.7-17.5 HEMATOCRIT (BEAKER) (test nubr=368) 27.9 % 40.1-51.0 MEAN CORPUSCULAR VOLUME (BEAKER) (test bszd=044) 90.9 fL 79.0-92.2 MEAN CORPUSCULAR HEMOGLOBIN (BEAKER) (test 29.3 pg 25.7-32.2 ibll=813) MEAN CORPUSCULAR HEMOGLOBIN CONC (BEAKER) (test 32.3 GM/DL 32.3-36.5 untl=839) RED CELL DISTRIBUTION WIDTH (BEAKER) (test 15.1 % 11.6-14.4 rtdo=214) PLATELET COUNT (BEAKER) (test xaxt=035) 252 K/CU MM 150-450 MEAN PLATELET VOLUME (BEAKER) (test cozv=364) 9.6 fL 9.4-12.4 NUCLEATED RED BLOOD CELLS (BEAKER) (test 0 /100 WBC 0-0 nzwl=600) NEUTROPHILS RELATIVE PERCENT (BEAKER) (test 64 % rnua=375) LYMPHOCYTES RELATIVE PERCENT (BEAKER) (test 18 % ecvl=561) MONOCYTES RELATIVE PERCENT (BEAKER) (test 15 % sdpk=222) EOSINOPHILS RELATIVE PERCENT (BEAKER) (test 2 % dynt=590) BASOPHILS RELATIVE PERCENT (BEAKER) (test 1 % ceku=976) NEUTROPHILS ABSOLUTE COUNT (BEAKER) (test 6.37 K/ L 1.78-5.38 pgby=877) LYMPHOCYTES ABSOLUTE COUNT (BEAKER) (test 1.75 K/ L 1.32-3.57 rscp=090) MONOCYTES ABSOLUTE COUNT (BEAKER) (test 1.48 K/ L 0.30-0.82 gkys=487) EOSINOPHILS ABSOLUTE COUNT (BEAKER) (test 0.23 K/ L 0.04-0.54 whtu=459) BASOPHILS ABSOLUTE COUNT (BEAKER) (test 0.06 K/ L 0.01-0.08 jnka=593) IMMATURE GRANULOCYTES-RELATIVE PERCENT (BEAKER) 1 % 0-1 (test dsoe=7404) TISSUE [id number] 13:43:00Surgical Pathology Report Case: [id number] Authorizing Provider: Anna Ramos MD Collected: 08/08/2017 1319 Ordering Location: [address] Received: 08/09/2017 0807 Service Pathologist: Doreen Hanson MD Specimens: A) - Large Intestine, Colon - Right/ Ascending, bx r/o microscopic colitis B) -Large Intestine, Colon - Left/Descending, bx r/o microscopic colitis C) - Polyp, Colon - Sigmoid, polyps x 2 taken w/ standard forcep A. COLON, RIGHT/ASCENDING, BIOPSIES- COLONIC MUCOSA WITH NO SIGNIFICANT DIAGNOSTIC ALTERATIONSB. COLON, LEFT/DESCENDING. BIOPSIES- COLONIC MUCOSA WITH MILD ACTIVE INFLAMMATION, see commentC. COLON, SIGMOID, POLYPECTOMY X2- NONDYSPLASTIC COLONIC MUCOSA WITH NO SIGNIFICANT DIAGNOSTIC ALTERATIONS Signing Pathologist DirectPhone Line: [phone] signed by Doreen Hanson MD on 08/13/2017 at 1:43 PMSpecimen B. The biopsies from left colon show mild active inflammation in lamina propria. This could represent mild active nonspecific colitis due to infections or drugs. This could also be secondary to bowel preparation. Clinical and endoscopic correlation is recommended. 78778 p4Dikkh mass A. Right ascending colon biopsy. B. Left descending colon biopsy. C. Sigmoid colon polyps r9Mzegiufm is received in three containers of formalin all labeled with the patient's information.Specimen A: Labeled "right ascending colon biopsy" consists of two fragments of humphries tissue measuring 0.1 and 0.2 cm, submitted in A1.Specimen B: Labeled "left descending colon biopsy" consists of two fragments of humphries tissue measuring0.1 and 0.2 cm, submitted in B1.Specimen C: Labeled sigmoid colon polyps x2" consists of two 0.1 cm fragments of humphries tissue submitted in C1. CG/ ew A. Section shows pieces of unremarkable colonic mucosa with preserved crypt architecture. Specifically, no active inflammation, intraepithelial lymphocytosis or thickened subepithelial collagen band is seen. No viral inclusions are seen. No dysplasia or carcinoma is present.B. Section shows pieces of colonic mucosa with edema and lamina propria capillaries with clusters of neutrophils and few scattered lamina propria neutrophils. No cryptitis is seen. The crypt architecture is preserved. No intraepithelial lymphocytosis or thickened subepithelial collagen band is seen. No viral inclusions are seen. No dysplasia or carcinoma is present.C. Section shows unremarkable nondysplastic colonic mucosa with preserved crypt architecture. No inflammation is seen.[id number] 12:17:00 Test Item Value Reference Range Comments PROLACTIN (BEAKER) (test ssfl=610) 10.83 ng/mL 3.46-19.40 T4, [id number] 10:23:00 Test Item Value Reference Range Comments FREE T4 (BEAKER) (test rvam=473) 1.33 ng/dL 0.70-1.48 TSH/FREE T4 IF [id number] 10:23:00 Test Item Value Reference Range Comments THYROID STIMULATING HORMONE (BEAKER) (test 1.70 uIU/mL 0.35-4.94 fdbg=231) CBC W/PLT COUNT & AUTO [id number] 09:42:00 Test Item Value Reference Range Comments WHITE BLOOD CELL COUNT (BEAKER) (test apty=717) 9.5 K/ L 3.5-10.5 RED BLOOD CELL COUNT (BEAKER) (test qqfz=582) 3.41 M/ L 4.63-6.08 HEMOGLOBIN (BEAKER) (test rooy=783) 10.2 GM/DL 13.7-17.5 HEMATOCRIT (BEAKER) (test zcaj=657) 30.3 % 40.1-51.0 MEAN CORPUSCULAR VOLUME (BEAKER) (test loax=288) 88.9 fL 79.0-92.2 MEAN CORPUSCULAR HEMOGLOBIN (BEAKER) (test 29.9 pg 25.7-32.2 shvp=244) MEAN CORPUSCULAR HEMOGLOBIN CONC (BEAKER) (test 33.7 GM/DL 32.3-36.5 rwhq=116) RED CELL DISTRIBUTION WIDTH (BEAKER) (test 15.0 % 11.6-14.4 nggr=625) PLATELET COUNT (BEAKER) (test qbtb=646) 281 K/CU MM 150-450 MEAN PLATELET VOLUME (BEAKER) (test wfsy=365) 10.0 fL 9.4-12.4 NUCLEATED RED BLOOD CELLS (BEAKER) (test 0 /100 WBC 0-0 hkfu=328) NEUTROPHILS RELATIVE PERCENT (BEAKER) (test 71 % pgjo=658) LYMPHOCYTES RELATIVE PERCENT (BEAKER) (test 16 % ftjq=298) MONOCYTES RELATIVE PERCENT (BEAKER) (test 11 % cltq=912) EOSINOPHILS RELATIVE PERCENT (BEAKER) (test 2 % jtyz=085) BASOPHILS RELATIVE PERCENT (BEAKER) (test 1 % izpr=885) NEUTROPHILS ABSOLUTE COUNT (BEAKER) (test 6.79 K/ L 1.78-5.38 ooxq=097) LYMPHOCYTES ABSOLUTE COUNT (BEAKER) (test 1.48 K/ L 1.32-3.57 pxuo=875) MONOCYTES ABSOLUTE COUNT (BEAKER) (test 1.02 K/ L 0.30-0.82 bmhv=424) EOSINOPHILS ABSOLUTE COUNT (BEAKER) (test 0.15 K/ L 0.04-0.54 tchi=935) BASOPHILS ABSOLUTE COUNT (BEAKER) (test 0.05 K/ L 0.01-0.08 gnpf=294) IMMATURE GRANULOCYTES-RELATIVE PERCENT (BEAKER) 1 % 0-1 (test sjcv=6250) [id number] 05:11:00 Test Item Value Reference Range Comments MAGNESIUM (BEAKER) (test qhcs=721) 1.4 mg/dL 1.6-2.6 BASIC METABOLIC [id number] 05:11:00 Test Item Value Reference Range Comments SODIUM (BEAKER) (test 126 meq/L 136-145 cbxs=654) POTASSIUM (BEAKER) (test 3.6 meq/L 3.5-5.1 qrpd=333) CHLORIDE (BEAKER) (test 96 meq/L 98-107 ajuf=284) CO2 (BEAKER) (test 23 meq/L 22-29 hmbg=657) BLOOD UREA NITROGEN 4 mg/dL 7-21 (BEAKER) (test ifvq=294) CREATININE (BEAKER) (test 0.48 mg/dL 0.57-1.25 mwvu=423) GLUCOSE RANDOM (BEAKER) 113 mg/dL 70-105 (test kath=715) CALCIUM (BEAKER) (test 8.7 mg/dL 8.4-10.2 ujic=988) EGFR (BEAKER) (test 174 mL/min/1.73 sq m ESTIMATED GFR IS NOT pkkp=7063) ACCURATE CREATININE CLEARANCE IN PREDICTING GLOMERULAR FILTRATION RATE. ESTIMATED GFR IS NOT APPLICABLE FOR DIALYSIS PATIENTS. MR, BRAIN, [id number] 08:17:00FINAL REPORT MRI Brain with and without contrast 08/11/2017 at 2158 CLINICAL HISTORY: Lung cancer, non- small cell, staging TECHNIQUE: Multiplanar, multisequence MR imaging of the brain was performed, utilizing the following imaging sequences: Axial T1, T2, FLAIR, GRE, DWI/ADC; sagittal T1; postcontrast axial, sagittal, and coronal T1. COMPARISON: None available. FINDINGS: There is a 5 mm noncystic lesion without diffusion restriction or remarkable enhancement at the base of thepituitary infundibulum, abutting the superior pituitary gland. Diagnostic considerations include pituitary adenoma, pituicytoma, granular cell tumor, lymphocytic hypophysitis, and metastasis. There is no acute infarct hematoma, hydrocephalus , extra-axial collection, or abnormal intracranial enhancement. There [...] 2. Mild chronic microvascular ischemia. Signed: Art [place] Verified Date/Time: 08/12/2017 08:17:56 Reading Location: [address] Neuro Reading Room [id number] 05:44:00 Test Item Value Reference Range Comments MAGNESIUM (BEAKER) (test hycf=104) 1.7 mg/dL 1.6-2.6 BASIC METABOLIC [id number] 05:44:00 Test Item Value Reference Range Comments SODIUM (BEAKER) (test 126 meq/L 136-145 wzcz=459) POTASSIUM (BEAKER) (test 3.6 meq/L 3.5-5.1 cbut=228) CHLORIDE (BEAKER) (test 96 meq/L 98-107 wthu=077) CO2 (BEAKER) (test 24 meq/L 22-29 hvan=954) BLOOD UREA NITROGEN 5 mg/dL 7-21 (BEAKER) (test nvmz=110) CREATININE (BEAKER) (test 0.50 mg/dL 0.57-1.25 eewx=355) GLUCOSE RANDOM (BEAKER) 116 mg/dL 70-105 (test xtnu=763) CALCIUM (BEAKER) (test 8.4 mg/dL 8.4-10.2 phgs=331) EGFR (BEAKER) (test 166 mL/min/1.73 sq m ESTIMATED GFR IS NOT tfko=5651) ACCURATE CREATININE CLEARANCE IN PREDICTING GLOMERULAR FILTRATION RATE. ESTIMATED GFR IS NOT APPLICABLE FOR DIALYSIS PATIENTS. [id number] 23:00:00 Test Item Value Reference Range Comments SODIUM (BEAKER) (test tkfd=187) 124 meq/L 136-145 Notify renal of sodium result if Na < 122 or > 128BASIC METABOLIC [id number] 16:54:00 Test Item Value Reference Range Comments SODIUM (BEAKER) (test 126 meq/L 136-145 eptj=903) POTASSIUM (BEAKER) (test 3.6 meq/L 3.5-5.1 oiok=172) CHLORIDE (BEAKER) (test 95 meq/L 98-107 qojp=021) CO2 (BEAKER) (test 21 meq/L 22-29 kwso=394) BLOOD UREA NITROGEN 4 mg/dL 7-21 (BEAKER) (test oggp=944) CREATININE (BEAKER) (test 0.53 mg/dL 0.57-1.25 wftf=202) GLUCOSE RANDOM (BEAKER) 115 mg/dL 70-105 (test xqis=340) CALCIUM (BEAKER) (test 8.3 mg/dL 8.4-10.2 oizb=286) EGFR (BEAKER) (test 156 mL/min/1.73 sq m ESTIMATED GFR IS NOT vigc=1758) ACCURATE CREATININE CLEARANCE IN PREDICTING GLOMERULAR FILTRATION RATE. ESTIMATED GFR IS NOT APPLICABLE FOR DIALYSIS PATIENTS. Call renal [phone] with Na result [id number] 06:10:00 Test Item Value Reference Range Comments MAGNESIUM (BEAKER) (test 2.0 mg/dL 1.6-2.6 Specimen slightly hemolyzed jzyo=605) BASIC METABOLIC [id number] 06:10:00 Test Item Value Reference Range Comments SODIUM (BEAKER) (test 121 meq/L 136-145 vdnv=280) POTASSIUM (BEAKER) (test 3.8 meq/L 3.5-5.1 Specimen slightly eoim=217) hemolyzed CHLORIDE (BEAKER) (test 92 meq/L 98-107 uamn=351) CO2 (BEAKER) (test 18 meq/L 22-29 fick=977) BLOOD UREA NITROGEN 4 mg/dL 7-21 (BEAKER) (test mzfq=368) CREATININE (BEAKER) (test 0.51 mg/dL 0.57-1.25 Specimen slightly sjpk=119) hemolyzed GLUCOSE RANDOM (BEAKER) 88 mg/dL 70-105 (test fhtp=123) CALCIUM (BEAKER) (test 8.1 mg/dL 8.4-10.2 krbc=727) EGFR (BEAKER) (test 163 mL/min/1.73 sq m ESTIMATED GFR IS NOT qbcz=3898) ACCURATE CREATININE CLEARANCE IN PREDICTING GLOMERULAR FILTRATION RATE. ESTIMATED GFR IS NOT APPLICABLE FOR DIALYSIS PATIENTS. U/S, CORE [id number] 16:06:00Reason for exam:->Subxiphoid nodule for diagnosis and cytologic analysisShould this be performed at the bedside?-> NoFINAL REPORT History: Subxiphoid nodule COMPARISON: CT dated 08/09/2017 DISCUSSION: The previous CT study was reviewed. A telegraph office telephone clerk image was obtained. In the subxiphoid region, thereis a hypoechoic mass measuring 2.7 x 2.3 [...] were no immediate complications. IMPRESSION: Technically successful ultrasound-guidedcore biopsy of a subxiphoid mass. Signed : Brook Moseley [place] Verified Date/Time: 08/10/2017 16:06:40 Reading Location: [facility] P006J Ultrasound Reading Room SODIUM, RANDOM [id number] 12:39:00 Test Item Value Reference Range Comments SODIUM URINE (BEAKER) (test egto=603) 117 meq/L Reference Range: No NormalsOSMOLALITY, [id number] 12:32:00 Test Item Value Reference Range Comments OSMOLALITY URINE (BEAKER) (test ffye=925) 337 mOsm/kg 40-1400 PLATELET [id number] 11:57:00 Test Item Value Reference Range Comments PLATELET COUNT (BEAKER) (test zaql=091) 269 K/CU MM 150-450 BASIC METABOLIC [id number] 07:30:00 Test Item Value Reference Range Comments SODIUM (BEAKER) (test 126 meq/L 136-145 nmmb=909) POTASSIUM (BEAKER) (test 3.8 meq/L 3.5-5.1 coms=384) CHLORIDE (BEAKER) (test 96 meq/L 98-107 eagy=143) CO2 (BEAKER) (test 21 meq/L 22-29 pwwe=802) BLOOD UREA NITROGEN 3 mg/dL 7-21 (BEAKER) (test pkuz=629) CREATININE (BEAKER) (test 0.51 mg/dL 0.57-1.25 rfbh=062) GLUCOSE RANDOM (BEAKER) 93 mg/dL 70-105 (test rljv=077) CALCIUM (BEAKER) (test 8.2 mg/dL 8.4-10.2 cesj=879) EGFR (BEAKER) (test 163 mL/min/1.73 sq m ESTIMATED GFR IS NOT tzbx=1617) ACCURATE CREATININE CLEARANCE IN PREDICTING GLOMERULAR FILTRATION RATE. ESTIMATED GFR IS NOT APPLICABLE FOR DIALYSIS PATIENTS. [id number] 05:51:00 Test Item Value Reference Range Comments PHOSPHORUS (BEAKER) (test hrtg=040) 3.3 mg/dL 2.3-4.7 [id number] 05:51:00 Test Item Value Reference Range Comments MAGNESIUM (BEAKER) (test zsls=130) 1.5 mg/dL 1.6-2.6 PROTHROMBIN [id number] 05:39:00 Test Item Value Reference Range Comments PROTIME (BEAKER) (test nltf=208) 15.0 seconds 11.7-14.7 INR (BEAKER) (test kofo=358) 1.2 <=5.9 RECOMMENDED COUMADIN/WARFARIN INR THERAPY RANGESSTANDARD DOSE: 2.0 - 3.0 Includes: PROPHYLAXIS forvenous thrombosis, systemic embolization; TREATMENT for venous thrombosis and/or pulmonary embolus.HIGH RISK: Target INR is 2.5-3.5 for patients with mechanical heart valves.[id number] 05:39:00 Test Item Value Reference Range Comments PROTIME (BEAKER) (test esho=140) 15.0 seconds 11.7-14.7 INR (BEAKER) (test naxa=557) 1.2 <=5.9 PARTIAL THROMBOPLASTIN TIME (BEAKER) (test 30.0 seconds 22.5-36.0 fhpp=029) RECOMMENDED COUMADIN/WARFARIN INR THERAPY RANGESSTANDARD DOSE: 2.0 - 3.0 Includes: PROPHYLAXIS forvenous thrombosis, systemic embolization; TREATMENT for venous thrombosis and/or pulmonary embolus.HIGH RISK: Target INR is 2.5-3.5 for patients with mechanical heart valves.CBC W/PLT COUNT & AUTO [id number] 05:31:00 Test Item Value Reference Range Comments WHITE BLOOD CELL COUNT (BEAKER) (test txpf=315) 9.9 K/ L 3.5-10.5 RED BLOOD CELL COUNT (BEAKER) (test rxez=826) 2.78 M/ L 4.63-6.08 HEMOGLOBIN (BEAKER) (test uyel=106) 8.5 GM/DL 13.7-17.5 HEMATOCRIT (BEAKER) (test uapp=213) 24.8 % 40.1-51.0 MEAN CORPUSCULAR VOLUME (BEAKER) (test klis=666) 89.2 fL 79.0-92.2 MEAN CORPUSCULAR HEMOGLOBIN (BEAKER) (test 30.6 pg 25.7-32.2 pbia=053) MEAN CORPUSCULAR HEMOGLOBIN CONC (BEAKER) (test 34.3 GM/DL 32.3-36.5 qrih=309) RED CELL DISTRIBUTION WIDTH (BEAKER) (test 14.6 % 11.6-14.4 wrgw=168) PLATELET COUNT (BEAKER) (test khgd=031) 143 K/CU MM 150-450 MEAN PLATELET VOLUME (BEAKER) (test jjir=836) 10.7 fL 9.4-12.4 NUCLEATED RED BLOOD CELLS (BEAKER) (test 0 /100 WBC 0-0 cahn=193) NEUTROPHILS RELATIVE PERCENT (BEAKER) (test 74 % wyxh=690) LYMPHOCYTES RELATIVE PERCENT (BEAKER) (test 13 % kswn=716) MONOCYTES RELATIVE PERCENT (BEAKER) (test 11 % nrem=299) EOSINOPHILS RELATIVE PERCENT (BEAKER) (test 1 % uiyw=793) BASOPHILS RELATIVE PERCENT (BEAKER) (test 1 % ixod=216) NEUTROPHILS ABSOLUTE COUNT (BEAKER) (test 7.31 K/ L 1.78-5.38 dldu=636) LYMPHOCYTES ABSOLUTE COUNT (BEAKER) (test 1.23 K/ L 1.32-3.57 fgie=340) MONOCYTES ABSOLUTE COUNT (BEAKER) (test 1.12 K/ L 0.30-0.82 wyuy=697) EOSINOPHILS ABSOLUTE COUNT (BEAKER) (test 0.09 K/ L 0.04-0.54 biap=710) BASOPHILS ABSOLUTE COUNT (BEAKER) (test 0.05 K/ L 0.01-0.08 pvss=351) IMMATURE GRANULOCYTES-RELATIVE PERCENT (BEAKER) 1 % 0-1 (test tjpk=4115) CALCIUM, [id number] 05:29:00 Test Item Value Reference Range Comments CALCIUM IONIZED (BEAKER) (test zmnd=755) 1.07 mmol/L 1.12-1.27 PH, BLOOD (BEAKER) (test jtbd=5786) 7.46 CT, CHEST, WITHOUT [id number] 20:32:00FINAL REPORT EXAMINATION: Noncontrast chest CT. CLINICAL HISTORY:Lung mass COMPARISON EXAM: None TECHNIQUE: Axial noncontrast tomographic images were acquired through the thorax. The exam was performed according to our departmental dose optimization program which includes automated exposure control , adjustment of the mA and/or kV according to patient's size and/or use of iterative reconstructive technique. FINDINGS: The lungs demonstrate architectural distortion compatible with moderate - advanced emphysema. A spiculated 4.5 cm mass is noted in the right upper lobe. The adjacent posterior right pleural margin is associated with nodular soft tissue attenuation which extendsfrom the pleural margin to the mass lesion. [...] the upper abdomen demonstrate large bilateral mass lesionscentered in the region of the adrenal glands. The mass lesions are incompletely visualized. However,the right adrenal mass measures at least 9 [...] spiculated 4.5 cm lung mass with imaging characteristicsconcerning for a primary lung cancer. Soft tissue [...] including coronary artery involvement. Signed: Viktor Navarro [place] Verified Date/Time: 08/09/2017 20:32:06 Reading Location: [address] Reading Room [id number] 18:46:00 Test Item Value Reference Range Comments SODIUM (BEAKER) (test tbnt=714) 123 meq/L 136-145 [id number] 13:08:00 Test Item Value Reference Range Comments CORTISOL, TOTAL (BEAKER) (test sqdo=7485) 11.3 ug/dL 3.7-19.4 [id number] 12:29:00 Test Item Value Reference Range Comments SODIUM (BEAKER) (test pwrg=755) 124 meq/L 136-145 [id number] 07:04:00 Test Item Value Reference Range Comments PHOSPHORUS (BEAKER) (test rhbe=465) 3.0 mg/dL 2.3-4.7 [id number] 07:04:00 Test Item Value Reference Range Comments MAGNESIUM (BEAKER) (test kgvz=695) 1.6 mg/dL 1.6-2.6 [id number] 07:04:00 Test Item Value Reference Range Comments SODIUM (BEAKER) (test kutr=369) 124 meq/L 136-145 BASIC METABOLIC [id number] 07:04:00 Test Item Value Reference Range Comments SODIUM (BEAKER) (test 124 meq/L 136-145 dpfv=818) POTASSIUM (BEAKER) (test 3.4 meq/L 3.5-5.1 qmhu=503) CHLORIDE (BEAKER) (test 96 meq/L 98-107 dwuo=692) CO2 (BEAKER) (test 21 meq/L 22-29 oanj=585) BLOOD UREA NITROGEN 5 mg/dL 7-21 (BEAKER) (test tedm=946) CREATININE (BEAKER) (test 0.49 mg/dL 0.57-1.25 klwm=211) GLUCOSE RANDOM (BEAKER) 92 mg/dL 70-105 (test cfml=453) CALCIUM (BEAKER) (test 8.4 mg/dL 8.4-10.2 bgsa=951) EGFR (BEAKER) (test 170 mL/min/1.73 sq m ESTIMATED GFR IS NOT neci=0772) ACCURATE CREATININE CLEARANCE IN PREDICTING GLOMERULAR FILTRATION RATE. ESTIMATED GFR IS NOT APPLICABLE FOR DIALYSIS PATIENTS. HEPATIC FUNCTION [id number] 07:04:00 Test Item Value Reference Range Comments TOTAL PROTEIN (BEAKER) (test ismc=979) 5.7 gm/dL 6.0-8.3 ALBUMIN (BEAKER) (test tlun=3286) 2.7 g/dL 3.5-5.0 BILIRUBIN TOTAL (BEAKER) (test kvbp=673) 0.8 mg/dL 0.2-1.2 BILIRUBIN DIRECT (BEAKER) (test eoxg=303) 0.4 mg/dL 0.1-0.5 ALKALINE PHOSPHATASE (BEAKER) (test gwnp=156) 77 U/L 40-150 AST (SGOT) (BEAKER) (test fqve=283) 45 U/L 5-34 ALT (SGPT) (BEAKER) (test nrjz=299) 12 U/L 6-55 [id number] 07:01:00 Test Item Value Reference Range Comments SODIUM (BEAKER) (test vohw=799) 125 meq/L 136-145 PROTHROMBIN [id number] 06:35:00 Test Item Value Reference Range Comments PROTIME (BEAKER) (test ofui=785) 15.7 seconds 11.7-14.7 INR (BEAKER) (test whvq=699) 1.3 <=5.9 RECOMMENDED COUMADIN/WARFARIN INR THERAPY RANGESSTANDARD DOSE: 2.0 - 3.0 Includes: PROPHYLAXIS forvenous thrombosis, systemic embolization; TREATMENT for venous thrombosis and/or pulmonary embolus.HIGH RISK: Target INR is 2.5-3.5 for patients with mechanical heart valves.[id number] 00:34:00 Test Item Value Reference Range Comments SODIUM (BEAKER) (test cqsh=583) 125 meq/L 136-145 [id number] 18:00:00 Test Item Value Reference Range Comments SODIUM (BEAKER) (test etof=369) 127 meq/L 136-145 TSH/FREE T4 IF [id number] 07:07:00 Test Item Value Reference Range Comments THYROID STIMULATING HORMONE (BEAKER) (test 1.51 uIU/mL 0.35-4.94 rdza=355) CALCIUM, [id number] 07:03:00 Test Item Value Reference Range Comments CALCIUM IONIZED (BEAKER) (test ytba=561) 1.04 mmol/L 1.12-1.27 PH, BLOOD (BEAKER) (test goeg=6399) 7.44 [id number] 06:56:00 Test Item Value Reference Range Comments SODIUM (BEAKER) (test clib=435) 124 meq/L 136-145 URIC [id number] 06:56:00 Test Item Value Reference Range Comments URIC ACID (BEAKER) (test llvm=596) 3.3 mg/dL 2.6-7.2 [id number] 06:56:00 Test Item Value Reference Range Comments MAGNESIUM (BEAKER) (test zqmq=524) 1.7 mg/dL 1.6-2.6 [id number] 06:56:00 Test Item Value Reference Range Comments PHOSPHORUS (BEAKER) (test ibgw=635) 3.1 mg/dL 2.3-4.7 HEPATIC FUNCTION [id number] 06:56:00 Test Item Value Reference Range Comments TOTAL PROTEIN (BEAKER) (test ojzz=645) 6.1 gm/dL 6.0-8.3 ALBUMIN (BEAKER) (test ukba=1364) 2.9 g/dL 3.5-5.0 BILIRUBIN TOTAL (BEAKER) (test xwnn=157) 0.8 mg/dL 0.2-1.2 BILIRUBIN DIRECT (BEAKER) (test fnmx=556) 0.4 mg/dL 0.1-0.5 ALKALINE PHOSPHATASE (BEAKER) (test njrn=289) 79 U/L 40-150 AST (SGOT) (BEAKER) (test wjqi=726) 40 U/L 5-34 ALT (SGPT) (BEAKER) (test snrc=325) 13 U/L 6-55 COMPREHENSIVE METABOLIC [id number] 06:56:00 Test Item Value Reference Range Comments TOTAL PROTEIN (BEAKER) 6.1 gm/dL 6.0-8.3 (test ycln=154) ALBUMIN (BEAKER) (test 2.9 g/dL 3.5-5.0 zdkd=6261) ALKALINE PHOSPHATASE 79 U/L 40-150 (BEAKER) (test ostp=428) BILIRUBIN TOTAL (BEAKER) 0.8 mg/dL 0.2-1.2 (test kkwa=493) SODIUM (BEAKER) (test 124 meq/L 136-145 hryd=931) POTASSIUM (BEAKER) (test 3.6 meq/L 3.5-5.1 tngp=770) CHLORIDE (BEAKER) (test 96 meq/L 98-107 ngwm=533) CO2 (BEAKER) (test 20 meq/L 22-29 lgkq=194) BLOOD UREA NITROGEN 6 mg/dL 7-21 (BEAKER) (test pivc=028) CREATININE (BEAKER) (test 0.53 mg/dL 0.57-1.25 uxzw=862) GLUCOSE RANDOM (BEAKER) 84 mg/dL 70-105 (test vxpu=488) CALCIUM (BEAKER) (test 8.4 mg/dL 8.4-10.2 pnoz=931) AST (SGOT) (BEAKER) (test 40 U/L 5-34 ruom=530) ALT (SGPT) (BEAKER) (test 13 U/L 6-55 jsxq=004) EGFR (BEAKER) (test 156 mL/min/1.73 sq ESTIMATED GFR IS NOT yujc=7898) m ACCURATE CREATININE CLEARANCE IN PREDICTING GLOMERULAR FILTRATION RATE. ESTIMATED GFR IS NOT APPLICABLE FOR DIALYSIS PATIENTS. [id number] 06:45:00 Test Item Value Reference Range Comments SODIUM (BEAKER) (test inhr=861) 125 meq/L 136-145 PROTHROMBIN [id number] 06:34:00 Test Item Value Reference Range Comments PROTIME (BEAKER) (test ntsn=719) 15.7 seconds 11.7-14.7 INR (BEAKER) (test eajb=121) 1.3 <=5.9 RECOMMENDED COUMADIN/WARFARIN INR THERAPY RANGESSTANDARD DOSE: 2.0 - 3.0 Includes: PROPHYLAXIS forvenous thrombosis, systemic embolization; TREATMENT for venous thrombosis and/or pulmonary embolus.HIGH RISK: Target INR is 2.5-3.5 for patients with mechanical heart valves.CBC W/PLT COUNT & AUTO [id number] 06:23:00 Test Item Value Reference Range Comments WHITE BLOOD CELL COUNT (BEAKER) (test ivfi=666) 9.3 K/ L 3.5-10.5 RED BLOOD CELL COUNT (BEAKER) (test hiqt=347) 3.08 M/ L 4.63-6.08 HEMOGLOBIN (BEAKER) (test jupd=038) 9.4 GM/DL 13.7-17.5 HEMATOCRIT (BEAKER) (test xoix=696) 27.8 % 40.1-51.0 MEAN CORPUSCULAR VOLUME (BEAKER) (test vyic=358) 90.3 fL 79.0-92.2 MEAN CORPUSCULAR HEMOGLOBIN (BEAKER) (test 30.5 pg 25.7-32.2 bcrg=473) MEAN CORPUSCULAR HEMOGLOBIN CONC (BEAKER) (test 33.8 GM/DL 32.3-36.5 sbdn=458) RED CELL DISTRIBUTION WIDTH (BEAKER) (test 14.8 % 11.6-14.4 jaeb=440) PLATELET COUNT (BEAKER) (test emrp=974) 326 K/CU MM 150-450 MEAN PLATELET VOLUME (BEAKER) (test mmet=725) 9.3 fL 9.4-12.4 NUCLEATED RED BLOOD CELLS (BEAKER) (test 0 /100 WBC 0-0 cbbu=695) NEUTROPHILS RELATIVE PERCENT (BEAKER) (test 75 % bhmk=471) LYMPHOCYTES RELATIVE PERCENT (BEAKER) (test 12 % miqd=233) MONOCYTES RELATIVE PERCENT (BEAKER) (test 11 % nmmv=337) EOSINOPHILS RELATIVE PERCENT (BEAKER) (test 1 % pngu=975) BASOPHILS RELATIVE PERCENT (BEAKER) (test 1 % xsag=378) NEUTROPHILS ABSOLUTE COUNT (BEAKER) (test 6.97 K/ L 1.78-5.38 ncym=896) LYMPHOCYTES ABSOLUTE COUNT (BEAKER) (test 1.13 K/ L 1.32-3.57 okdm=025) MONOCYTES ABSOLUTE COUNT (BEAKER) (test 1.00 K/ L 0.30-0.82 xvaq=581) EOSINOPHILS ABSOLUTE COUNT (BEAKER) (test 0.07 K/ L 0.04-0.54 slru=681) BASOPHILS ABSOLUTE COUNT (BEAKER) (test 0.05 K/ L 0.01-0.08 ouih=789) IMMATURE GRANULOCYTES-RELATIVE PERCENT (BEAKER) 1 % 0-1 (test cfgg=4175) OSMOLALITY, [id number] 00:54:00 Test Item Value Reference Range Comments OSMOLALITY URINE (BEAKER) (test ouvy=365) 458 mOsm/kg 40-1400 URINALYSIS W/ [id number] 00:53:00 Test Item Value Reference Range Comments COLOR (BEAKER) (test eljo=316) Yellow CLARITY (BEAKER) (test njiq=772) Clear SPECIFIC GRAVITY UA (BEAKER) (test 1.009 1.001-1.035 jjxj=225) PH UA (BEAKER) (test qhco=548) 6.5 5.0-8.0 PROTEIN UA (BEAKER) (test mrzk=794) Negative Negative GLUCOSE UA (BEAKER) (test istu=962) Negative Negative KETONES UA (BEAKER) (test zyss=632) 10 mg/dL Negative BILIRUBIN UA (BEAKER) (test oyek=343) Negative Negative BLOOD UA (BEAKER) (test ajxn=272) Negative Negative NITRITE UA (BEAKER) (test ryka=240) Negative Negative LEUKOCYTE ESTERASE UA (BEAKER) (test Negative Negative rfms=274) UROBILINOGEN UA (BEAKER) (test ijpw=111) 0.2 mg/dL 0.2-1.0 RBC UA (BEAKER) (test brfp=051) < /HPF WBC UA (BEAKER) (test ilrr=580) 1 /HPF MUCUS (BEAKER) (test texl=3891) Occasional SQUAMOUS EPITHELIAL (BEAKER) (test < /HPF kfnp=470) SOURCE(BEAKER) (test fund=2130) Urine, Clean Catch [id number] 00:38:00 Test Item Value Reference Range Comments SODIUM (BEAKER) (test ycoy=191) 124 meq/L 136-145 SODIUM, RANDOM [id number] 23:53:00 Test Item Value Reference Range Comments SODIUM URINE (BEAKER) (test bfba=915) 135 meq/L Reference Range: No NormalsRAD, CHEST, 2 [id number] 22:50:00Reason for exam :->hx of right hilar mass and lymphadenopathy, waiting for outside imaing, here with dyspnea and back painShould this be performed at the bedside?-> YesFINAL REPORT Comparison exam: None 4.1 x 2.9 cm suspected mass projecting superior and dorsal to the right hilum. Prominence of the right hilum and right paratracheal soft tissues concerning for lymphadenopathy. Contrast-enhanced CT scan of the chest is recommended to exclude neoplasm. Normal-sized heart. Old healed left clavicle fracture with residual deformity. Normal soft tissues. Signed: Elvis Sparrow MDReport Verified Date/Time: 08/07/2017 22:50:09 Reading Location: [place] [id number] Ortho Consult Reading Room 10 :50 [id number] 20:50:00 Test Item Value Reference Range Comments CORTISOL, TOTAL (BEAKER) (test jjka=9951) 14.1 ug/dL 3.7-19.4 OSMOLALITY, [id number] 20:26:00 Test Item Value Reference Range Comments OSMOLALITY, SERUM (BEAKER) (test xqsx=432) 256 mOsm/kg 275-295 [id number] 20:23:00 Test Item Value Reference Range Comments SODIUM (BEAKER) (test ujww=311) 122 meq/L 136-145 Call [id number] 20:23:00 Test Item Value Reference Range Comments SODIUM (BEAKER) (test pwdw=411) 122 meq/L 136-145 POTASSIUM (BEAKER) (test ebht=422) 3.8 meq/L 3.5-5.1 CHLORIDE (BEAKER) (test zxmr=232) 94 meq/L 98-107 CO2 (BEAKER) (test czrv=546) 19 meq/L 22-29 Call [id number] AND [id number] 16:30:00 Test Item Value Reference Range Comments VITAMIN B12 (BEAKER) (test gquu=688) > pg/mL 213-816 FOLATE (BEAKER) (test odun=902) 12.3 ng/mL >=7.0 [id number] 16:29:00 Test Item Value Reference Range Comments FERRITIN (BEAKER) (test lrcx=144) 1059 ng/mL 5-275 IRON, TIBC, % SAT. (WITHOUT FERRITIN)2017-08-07 15:53:00 Test Item Value Reference Range Comments IRON (BEAKER) (test newl=738) 31 ug/dL 40-160 TOTAL IRON BINDING CAPACITY (BEAKER) (test 131 ug/dL 250-450 ynsh=059) IRON % SATURATION (2) (BEAKER) (test rauz=0456) 24 % 20-55 CARCINOEMBRYONIC ANTIGEN (CEA)2017-08-07 06:17:00 Test Item Value Reference Range Comments CARCINOEMBRYONIC ANTIGEN (BEAKER) (test jbcw=316) 49.9 ng/mL 0.0-5.0 ALPHA FETOPROTEIN (AFP), TUMOR [id number] 06:17:00 Test Item Value Reference Range Comments ALPHA-FETOPROTEIN (BEAKER) (test cnil=6570) 7.2 ng/mL <10.0 [id number] 06:03:00 Test Item Value Reference Range Comments MAGNESIUM (BEAKER) (test msoz=561) 1.7 mg/dL 1.6-2.6 BASIC METABOLIC [id number] 06:03:00 Test Item Value Reference Range Comments SODIUM (BEAKER) (test 122 meq/L 136-145 tmey=176) POTASSIUM (BEAKER) (test 4.2 meq/L 3.5-5.1 hjvf=113) CHLORIDE (BEAKER) (test 94 meq/L 98-107 cpct=957) CO2 (BEAKER) (test 21 meq/L 22-29 sbyh=290) BLOOD UREA NITROGEN 6 mg/dL 7-21 (BEAKER) (test xldq=940) CREATININE (BEAKER) (test 0.54 mg/dL 0.57-1.25 vsib=522) GLUCOSE RANDOM (BEAKER) 95 mg/dL 70-105 (test lllj=995) CALCIUM (BEAKER) (test 8.5 mg/dL 8.4-10.2 remw=236) EGFR (BEAKER) (test 152 mL/min/1.73 sq m ESTIMATED GFR IS NOT hhmh=2924) ACCURATE CREATININE CLEARANCE IN PREDICTING GLOMERULAR FILTRATION RATE. ESTIMATED GFR IS NOT APPLICABLE FOR DIALYSIS PATIENTS. HEPATIC FUNCTION [id number] 06:03:00 Test Item Value Reference Range Comments TOTAL PROTEIN (BEAKER) (test kgbe=914) 6.5 gm/dL 6.0-8.3 ALBUMIN (BEAKER) (test wvgb=4460) 3.1 g/dL 3.5-5.0 BILIRUBIN TOTAL (BEAKER) (test slij=479) 0.8 mg/dL 0.2-1.2 BILIRUBIN DIRECT (BEAKER) (test moqq=890) 0.4 mg/dL 0.1-0.5 ALKALINE PHOSPHATASE (BEAKER) (test aubk=189) 81 U/L 40-150 AST (SGOT) (BEAKER) (test kaxe=994) 35 U/L 5-34 ALT (SGPT) (BEAKER) (test iygs=729) 11 U/L 6-55 [id number] 06:02:00 Test Item Value Reference Range Comments PHOSPHORUS (BEAKER) (test rkgc=141) 2.9 mg/dL 2.3-4.7 PROTHROMBIN [id number] 05:50:00 Test Item Value Reference Range Comments PROTIME (BEAKER) (test dojw=079) 15.5 seconds 11.7-14.7 INR (BEAKER) (test zfdo=670) 1.2 <=5.9 RECOMMENDED COUMADIN/WARFARIN INR THERAPY RANGESSTANDARD DOSE: 2.0 - 3.0 Includes: PROPHYLAXIS forvenous thrombosis, systemic embolization; TREATMENT for venous thrombosis and/or pulmonary embolus.HIGH RISK: Target INR is 2.5-3.5 for patients with mechanical heart valves.CBC W/PLT COUNT & AUTO [id number] 05:48:00 Test Item Value Reference Range Comments WHITE BLOOD CELL COUNT (BEAKER) (test mumz=704) 9.9 K/ L 3.5-10.5 RED BLOOD CELL COUNT (BEAKER) (test oyxx=457) 3.38 M/ L 4.63-6.08 HEMOGLOBIN (BEAKER) (test xyxy=923) 10.2 GM/DL 13.7-17.5 HEMATOCRIT (BEAKER) (test hipw=857) 30.4 % 40.1-51.0 MEAN CORPUSCULAR VOLUME (BEAKER) (test iblf=680) 89.9 fL 79.0-92.2 MEAN CORPUSCULAR HEMOGLOBIN (BEAKER) (test 30.2 pg 25.7-32.2 exsk=602) MEAN CORPUSCULAR HEMOGLOBIN CONC (BEAKER) (test 33.6 GM/DL 32.3-36.5 aspl=575) RED CELL DISTRIBUTION WIDTH (BEAKER) (test 14.6 % 11.6-14.4 rolw=875) PLATELET COUNT (BEAKER) (test tndx=423) 377 K/CU MM 150-450 MEAN PLATELET VOLUME (BEAKER) (test sdoc=954) 9.5 fL 9.4-12.4 NUCLEATED RED BLOOD CELLS (BEAKER) (test 0 /100 WBC 0-0 rzcq=247) NEUTROPHILS RELATIVE PERCENT (BEAKER) (test 71 % ruhe=620) LYMPHOCYTES RELATIVE PERCENT (BEAKER) (test 15 % wxbk=031) MONOCYTES RELATIVE PERCENT (BEAKER) (test 12 % vhcm=953) EOSINOPHILS RELATIVE PERCENT (BEAKER) (test 1 % hjlt=897) BASOPHILS RELATIVE PERCENT (BEAKER) (test 1 % keeg=349) NEUTROPHILS ABSOLUTE COUNT (BEAKER) (test 6.99 K/ L 1.78-5.38 gqng=291) LYMPHOCYTES ABSOLUTE COUNT (BEAKER) (test 1.46 K/ L 1.32-3.57 tcfx=367) MONOCYTES ABSOLUTE COUNT (BEAKER) (test 1.15 K/ L 0.30-0.82 vqud=033) EOSINOPHILS ABSOLUTE COUNT (BEAKER) (test 0.13 K/ L 0.04-0.54 jjtn=235) BASOPHILS ABSOLUTE COUNT (BEAKER) (test 0.08 K/ L 0.01-0.08 zldy=016) IMMATURE GRANULOCYTES-RELATIVE PERCENT (BEAKER) 1 % 0-1 (test zyun=9719)
[2017-09-03] MEDS ORDERED: NA CHLORIDE 0.9% 1,000 ML ONE (12:40)
[2017-09-03 12:45] LABS: Hematocrit 32.7 % (39.6-49.0); MCH 28.8 pg (27.0-35.0); MCV 87.7 fL (80-100); MPV 7.9 fL (7.6-11.3); RBC Red Blood Cell Count 3.73 M/uL (4.33-5.43)
[2017-09-03 12:46] LABS: Absolute Lymphocytes (CBC) 1.2 K/uL (0.7-4.9); Absolute Monocytes 0.9 K/uL (0.1-1.3); Absolute Neutrophil 9.5 K/uL (1.8-8.0); Basophils % 0.9 % (0-1.3); Eosinophils % 0.3 % (0-4.4); Lymphocytes % 10.3 % (15.3-44.8); Monocytes % 7.9 % (3.3-12.3)
[2017-09-03 13:09] LABS: BUN Blood Urea Nitrogen 9 mg/dL (7-18); Bicarbonate 23 mmol/L (21-32); Glucose Level 99 mg/dL (74-106); Potassium 4.1 mmol/L (3.5-5.1); Sodium Level 131 mmol/L (136-145)
--- NOTE | 2017-09-03 13:38 | EDPHYS ---
Physician Documentation [facility] Name: Ramos Nair Age: 67 yrs Sex: Male : 1950 Arrival Date: 09/03/2017 Time: 11:42 Bed 16 Private MD: Mars Rodríguez B ED Physician Jorge Cartwright HPI: 09/03 16:30 This 67 yrs old Male presents to ER via Ambulatory with complaints of gs DEHYDRATION. 16:30 The patient presents to the emergency department with weakness of the entire body, gs generalized weakness. Onset: The symptoms/episode began/occurred 2 week(s) ago. Associated signs and symptoms: Pertinent positives: nausea, sometimes has vomiting after eating, recent cancer dx, scheduled to see oncology in a couple of weeks has not started treatment, Pertinent negatives: altered mental status. Severity of symptoms: At their worst the symptoms were moderate in the emergency department the symptoms are unchanged. Historical: - Allergies: 11:54 No Known Allergies; aa5 - Home Meds: 14:13 Caltrate 600+D Plus Minerals Oral [Active]; lisinopril Oral [Active]; Metoprolol ae1 Tartrate Oral [Active]; Vitamin D3 Oral [Active]; multivitamin Oral [Active]; - PMHx: 11:54 Hypertension; Cancer; aa5 - PSHx: 11:54 neck; aa5 - Immunization history:: Adult Immunizations unknown. - Social history:: Smoking status: Patient uses tobacco products, smokes one-half pack cigarettes per day. - Ebola Screening: : No symptoms or risks identified at this time. ROS: 16:30 All other systems are negative. gs Exam: 16:30 Head/Face: Normocephalic, atraumatic. Eyes: Pupils equal round and reactive to light, gs extra-ocular motions intact. Lids and lashes normal. Conjunctiva and sclera are non-icteric and not injected. Cornea within normal limits. Periorbital areas with no swelling, redness, or edema. ENT: Nares patent. No nasal discharge, no septal abnormalities noted. Tympanic membranes are normal and external auditory canals are clear. Oropharynx with no redness, swelling, or masses, exudates, or evidence of obstruction, uvula midline. Mucous membranes moist. Neck: Trachea midline, no thyromegaly or masses palpated, and no cervical lymphadenopathy. Supple, full range of motion without nuchal rigidity, or vertebral point tenderness. No Meningismus. Chest/axilla: Normal chest wall appearance and motion. Nontender with no deformity. No lesions are appreciated. Cardiovascular: Regular rate and rhythm with a normal S1 and S2. No gallops, murmurs, or rubs. Normal PMI, no JVD. No pulse deficits. Respiratory: Lungs have equal breath sounds bilaterally, clear to auscultation and percussion. No rales, rhonchi or wheezes noted. No increased work of breathing, no retractions or nasal flaring. Abdomen/GI: Soft, non-tender, with normal bowel sounds. No distension or tympany. No guarding or rebound. No evidence of tenderness throughout. Back: No spinal tenderness. No costovertebral tenderness. Full range of motion. Skin: Warm, dry with normal turgor. Normal color with no rashes, no lesions, and no evidence of cellulitis. MS/ Extremity: Pulses equal, no cyanosis. Neurovascular intact. Full, normal range of motion. Neuro: Awake and alert, GCS 15, oriented to person, place, time, and situation. Cranial nerves II-XII grossly intact. Motor strength 5/5 in all extremities. Sensory grossly intact. Cerebellar exam normal. Normal gait. 16:30 Constitutional: The patient appears alert, awake, frail. Vital Signs: 11:54 BP 139 / 100; Pulse 112; Resp 18 S; Temp 98.4(TE); Pulse Ox 96% on R/A; Weight 51.71 kg aa5 (R); Height 5 ft. 9 in. (175.26 cm) (R); Pain 7/10; 13:05 BP 139 / 97; Pulse 88; Resp 15; Pulse Ox 99% on R/A; mh5 13:38 BP 136 / 95; Pulse 92; Resp 17; Pulse Ox 100% on R/A; ae1 11:54 Body Mass Index 16.83 (51.71 kg, 175.26 cm) aa5 MDM: 12:19 Patient medically screened. 16:30 Data reviewed: vital signs, nurses notes. Data interpreted: quality assurance monitor: Pulse gs oximetry:. Other consultation: dr zheng oncology will see this wek. ED course: ddx dehydration, electrolyte abl. 09/03 12:19 Order name: CBC with Diff; Complete Time: 13:14 09/03 12:19 Order name: Basic Metabolic Panel; Complete Time: 13:14 Administered Medications: 12:35 Drug: NS 0.9% 1000 ml Route: IV; Rate: 1 bolus; Site: left antecubital; ae1 14:09 Follow up: IV Status: Completed infusion ae1 Disposition: 09/03/17 13:38 Discharged to Home. Impression: Weakness. - Condition is Stable. - Discharge Instructions: Weakness, Fatigue. - Medication Reconciliation Form, Thank You Letter, Antibiotic Education, Prescription Opioid Use form. - Follow up: Private Physician; When: 1 - 2 days; Reason: Re-evaluation by your physician. Signatures: Dispatcher [employer] EDMoni White RN RN aa5 Ivan Sesay RN RN ae1 Jorge Cartwright MD MD Corrections: (The following items were deleted from the chart) 14:10 13:38 09/03/2017 13:38 Discharged to Home. Impression: Weakness. Condition is Stable. ae1 Forms are Medication Reconciliation Form, Thank You Letter, Antibiotic Education, Prescription Opioid Use. Follow up: Private Physician; When: 1 - 2 days; Reason: Re-evaluation by your physician.
--- NOTE | 2017-09-03 13:38 | ER ---
Nurse's Notes [facility] Name: Ramos Nair Age: 67 yrs Sex: Male : 1950 Arrival Date: 09/03/2017 Time: 11:42 Bed 16 Private MD: Mars Rodríguez B Diagnosis: Weakness Presentation: 09/03 11:52 Presenting complaint: Patient states: sent here by Dr. Rodríguez for possible dehydration. aa5 Pt reports nausea and vomiting x 2-3 days ago. Pt states "I know I have cancer but I don't know exactly where, I think they said my lungs and somewhere else". Pt also reports abd pain. Transition of care: patient was not received from another setting of care. Onset of symptoms was August 2017. Risk Assessment: Do you want to hurt yourself or someone else? Patient reports no desire to harm self or others. Initial Sepsis Screen: Does the patient meet any 2 criteria? HR > 90 bpm. Does the patient have a suspected source of infection? No. Patient's initial sepsis screen is negative. Care prior to arrival: None. 11:52 Method Of Arrival: Ambulatory aa5 11:52 Acuity: GEOVANI 3 aa5 Triage Assessment: 14:09 General: Appears in no apparent distress. uncomfortable, slender. ae1 14:09 General: Appears in no apparent distress. unkempt, Behavior is calm, cooperative. Pain: ae1 Complains of pain in abdomen. EENT: No signs and/or symptoms were reported regarding the EENT system. wears glasses.. Neuro: Level of Consciousness is awake, alert, obeys commands, Oriented to person, place, time, situation. Cardiovascular: Heart tones S1 S2 present Patient's skin is warm and dry. Respiratory: Airway is patent Respiratory effort is even, unlabored, Respiratory pattern is regular, symmetrical, Breath sounds are diminished bilaterally. GI: No signs and/or symptoms were reported involving the gastrointestinal system. GI: Reports nausea, vomiting. GI: Patient states he is not nauseous at this time but was vomiting the prior 3 days. : No signs and/or symptoms were reported regarding the genitourinary system. Derm: No signs and/or symptoms reported regarding the dermatologic system. Musculoskeletal: No signs and/or symptoms reported regarding the musculoskeletal system. Historical: - Allergies: 11:54 No Known Allergies; aa5 - Home Meds: 14:13 Caltrate 600+D Plus Minerals Oral [Active]; lisinopril Oral [Active]; Metoprolol ae1 Tartrate Oral [Active]; Vitamin D3 Oral [Active]; multivitamin Oral [Active]; - PMHx: 11:54 Hypertension; Cancer; aa5 - PSHx: 11:54 neck; aa5 - Immunization history:: Adult Immunizations unknown. - Social history:: Smoking status: Patient uses tobacco products, smokes one-half pack cigarettes per day. - Ebola Screening: : No symptoms or risks identified at this time. Screenin:48 Abuse screen: Denies threats or abuse. Nutritional screening: No deficits noted. ae1 Tuberculosis screening: No symptoms or risk factors identified. Fall Risk None identified. Assessment: 13:38 Reassessment: Provider at bedside discussing plan of care. ae1 14:00 Reassessment: Patient states feeling better. ae1 Vital Signs: 11:54 BP 139 / 100; Pulse 112; Resp 18 S; Temp 98.4(TE); Pulse Ox 96% on R/A; Weight 51.71 kg aa5 (R); Height 5 ft. 9 in. (175.26 cm) (R); Pain 7/10; 13:05 BP 139 / 97; Pulse 88; Resp 15; Pulse Ox 99% on R/A; mh5 13:38 BP 136 / 95; Pulse 92; Resp 17; Pulse Ox 100% on R/A; ae1 11:54 Body Mass Index 16.83 (51.71 kg, 175.26 cm) aa5 ED Course: 11:42 Patient arrived in ED. rg4 11:43 Mars Rodríguez MD is Private Physician. rg4 11:52 Arm band placed on. aa5 11:53 Triage completed. aa5 11:55 Ivan Sesay RN is Primary Nurse. ae1 11:56 Jorge Cartwright MD is Attending Physician. gs 12:16 Bed in low position. Call light in reach. Side rails up X 1. ae1 12:47 Inserted saline lock: 22 gauge in left antecubital area, using aseptic technique. Blood ae1 collected. 14:13 No provider procedures requiring assistance completed. IV discontinued, intact, ae1 bleeding controlled, No redness/swelling at site. Pressure dressing applied. Administered Medications: 12:35 Drug: NS 0.9% 1000 ml Route: IV; Rate: 1 bolus; Site: left antecubital; ae1 14:09 Follow up: IV Status: Completed infusion ae1 Outcome: 13:38 Discharge ordered by . 14:10 Patient left the ED. ae1 14:13 Discharged to home via wheelchair, with friend. ae1 14:13 Condition: stable 14:13 Discharge instructions given to patient, Instructed on discharge instructions, follow up and referral plans. Demonstrated understanding of instructions. Signatures: Moni Mg, RN RN aa5 Ivan Sesay RN RN ae1 Mirna Wheeler 4 Joan Rodriguez 5 Jorge Cartwright MD MD
== END 2017-09-03 14:10 | disposition home or self-care (01) ==
LOC: ER 11:40
DX: R53.1 Weakness (principal); I10 Essential (primary) hypertension; F17.210 Nicotine dependence, cigarettes, uncomplicated
CPT/HCPCS: 36415; 80048; 85025; 96360; 96361; 99283; J7030